=== PATIENT | male | born 1950 | race Caucasian/White ===

== ENCOUNTER 2018-11-10 10:36 | Emergency (ER) | payer MEDICARE, MEDICAID ==
[2018-11-10 10:47] VITALS: BP 136/86
[2018-11-10 11:40] LABS: Influenza A Molecular POSITIVE (Negative)
--- NOTE | 2018-11-10 11:59 | UC ---
FLU HPI - HPI Summary HPI Summary: 68 y/o male presents to the urgent care c/o SPIVEY, nasal congestion w/ clear nasal discharge, body aches and low grade fever for the past 3 days. Mild sore throat 5/10. He has been taking hydrocodone/Tylenol to alleviate pain since he has Hx of chronic back pain. Pt denies SOB, dizziness, chest pain, abdominal pain. N/V/D. - History of Current Complaint Chief Complaint: UCRespiratory Stated Complaint: HEADACHE Time Seen by Provider: 11/10/18 11:20 Hx Obtained From: Patient Onset/Duration: Gradual Onset, Lasting Days - 3 days, Still Present Severity Currently: Mild Severity Initially: Moderate Pain Intensity: 5 Pain Scale Used: 0-10 Numeric Associated Signs & Symptoms: Positive: Fever - low grade fever the first day of symptoms, Myalgia, Cough - dry, Sore Throat, Nasal Congestion - clear, Headache Related Hx: Possible Flu/Infectious Exposure - Risk Factors Influenza Risk Factors: Negative - Allergy/Home Medications Allergies/Adverse Reactions: Allergies Allergy/AdvReac Type Severity Reaction Status Date / Time Penicillins Allergy unk Verified 11/10/18 10:38 Home Medications: Home Medications Rivaroxaban TAB(*) [Xarelto 15 mg(*)] 15 mg PO DAILY 11/10/18 [History Confirmed 11/10/18] glipiZIDE [Glipizide ER] 2.5 mg PO QID 11/10/18 [History Confirmed 11/10/18] PMH/Surg Hx/FS Hx/Imm Hx Previously Healthy: Yes Endocrine History: Dyslipidemia Cardiovascular History: Hypertension GI/ History: Gastroesophageal Reflux - Surgical History Surgical History: None - Family History Known Family History: Positive: Hypertension - Social History Occupation: Retired Lives: With Family Alcohol Use: None Substance Use Type: None Smoking Status (MU): Heavy Every Day Tobacco Smoker Review of Systems All Other Systems Reviewed And Are Negative: Yes Constitutional: Positive: Fever - low grade fever, Chills, Fatigue, Other - body aches Skin: Positive: Negative Eyes: Positive: Negative ENT: Positive: Sore Throat - mild, Nasal Discharge - clear, Sinus Congestion Respiratory: Positive: Cough - dry Cardiovascular: Positive: Negative Gastrointestinal: Positive: Negative Genitourinary: Positive: Negative Motor: Positive: Negative Neurovascular: Positive: Negative Musculoskeletal: Positive: Myalgia Neurological: Positive: Headache Psychological: Positive: Negative Is Patient Immunocompromised?: No Physical Exam - Summary Physical Exam Summary: VITAL SIGNS: Reviewed. GENERAL: Patient is a well developed and nourished obese male who is sitting comfortable in the examining table. Patient is not in any acute respiratory distress. HEAD AND FACE: No signs of trauma. No ecchymosis, hematomas or skull depressions. No sinus tenderness. EYES: PERRLA, EOMI x 2, No injected conjunctiva, no nystagmus. No photophobia. EARS: Hearing grossly intact. Ear canals and tympanic membranes are within normal limits. Nose: edematous and erythematous nasal mucosa w/ clear nasal discharge. MOUTH: Positive no erythema, no tonsillar enlargement. Uvula in midline. NECK: Supple, trachea is midline, Positive anterior cervical lymphadenopathy, no JVD, no carotid bruit, no c-spine tenderness, neck with full ROM. No meningeal signs, no Kernig's or brudzinskis signs. CHEST: Symmetric, no tenderness at palpation LUNGS: Clear to auscultation bilaterally. No wheezing or crackles. CVS: Regular rate and rhythm, S1 and S2 present, no murmurs or gallops appreciated. ABDOMEN: Soft, non-tender. No signs of distention. No rebound no guarding, and no masses palpated. Bowel sounds are normal. EXTREMITIES: FROM in all major joints, no edema, no cyanosis or clubbing. NEURO: Alert and oriented x 3. No acute neurological deficits. Speech is normal and follows commands. SKIN: Dry and warm Triage Information Reviewed: Yes Vital Signs: Initial Vital Signs Temp 98 F 11/10/18 10:43 Pulse 89 11/10/18 10:43 Resp 20 11/10/18 10:43 BP 136/86 11/10/18 10:43 Pulse Ox 99 11/10/18 10:43 Flu Course/Dx - Course Course Of Treatment: 68 y/o male presents to the urgent care c/o SPIVEY, nasal congestion w/ clear nasal discharge, body aches and low grade fever for the past 3 days. Mild sore throat 5/10. He has been taking hydrocodone/Tylenol to alleviate pain since he has Hx of chronic back pain. Pt denies SOB, dizziness, chest pain, abdominal pain. N/V/D. Hx obtained. Pt w/ URI on examination. Rapid strep: negative. Rapid Influenza A&B: positive influenza A. Chest X-ray ordered: hyperinflated lungs conistent w/ COPD. Pt Rx Tamiflu and advised to contiinue w/ Tylenol PO to alleviates symptoms. Advised on hand washing and wear a mask to avoid spreading. Pt advised to rest, increase fluid intake, eat well and avoid strenuous exercise. If symptoms do not improve or worsen advised to return to the urgent care or f/u with her PCP for further evaluation and treatment. Pt understood and agreed - Differential Dx/Diagnosis Differential Diagnosis/HQI/PQRI: Bronchitis, Influenza, Pneumonia, Upper Respiratory Infection Provider Diagnosis: Influenza A Discharge - Sign-Out/Discharge Documenting (check all that apply): Patient Departure - d/C home All imaging exams completed and their final reports reviewed: Yes - Discharge Plan Condition: Stable Disposition: HOME Prescriptions: Albuterol HFA INHALER* [Ventolin HFA Inhaler*] 2 puff INH Q4H PRN #1 mdi PRN Reason: Wheezing Fluticas/Salmet 115/21 HFA(NF) [Advair HFA 115/21 (NF)] 1 puff INH DAILY WITH MEAL #1 mdi Oseltamivir CAP* [Tamiflu CAP*] 75 mg PO BID #10 cap Patient Education Materials: Influenza (ED) Referrals: Howard Allred MD [Primary Care Provider] - 3 Days Additional Instructions: 1- Please take the full course of the antiviral to avoid resistance. Encourage hand washing and wear a mask to avoid spreading. 2-Please continue taking Tylenol PO q6-8hrs prn as instructed after meals to alleviate fever, and sore throat. Increase fluid intake, eat well, rest and avoid strenuous exercise 3-If symptoms do not improve please f/u with your PCP in 3 days for further evaluation and treatment. 4- If symptoms worsen and you develop fever, SOB, dizziness, or chest pain please go immediately to the ER for further management - Billing Disposition and Condition Condition: STABLE Disposition: Home
== END 2018-11-10 12:46 | disposition home or self-care (01) ==
LOC: UCEAST 10:36
DX: J10.1 Influenza due to other identified influenza virus with other respiratory manifestations (principal); Z88.0 Allergy status to penicillin; E78.5 Hyperlipidemia, unspecified; I10 Essential (primary) hypertension; K21.9 Gastro-esophageal reflux disease without esophagitis; F17.200 Nicotine dependence, unspecified, uncomplicated
CPT/HCPCS: 71046; 87651; 99212; G0463

== ENCOUNTER 2019-06-14 11:20 | Inpatient (IN) | payer MEDICARE, MEDICAID ==
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
[2019-06-14] MEDS ORDERED: Furosemide IV* 10 MG/ML VIAL (40 MG) IV SLOW PU ONE (11:47)
[2019-06-14] MEDS ORDERED: Albuterol/Ipratropium NEB.SOL* Albuterol 2.5 MG/Ipratropium 0.5 MG 3 ML INH ONE (11:47)
[2019-06-14 12:34] LABS: Troponin I 0.01 ng/mL (<0.04)
[2019-06-14 12:41] LABS: ALT 8 U/L (7-52); AST 6 U/L (13-39); Albumin 3.8 g/dL (3.2-5.2); Albumin/Globulin Ratio 1.2 (1-3); Alkaline Phosphatase 78 U/L (34-104); Anion Gap 7 mmol/L (2-11); Blood Urea Nitrogen 16 mg/dL (6-24); CO2 Carbon Dioxide 27 mmol/L (22-32); Calcium 9.1 mg/dL (8.6-10.3); Chloride 104 mmol/L (101-111); EGFR African American 52.1 (>60); EGFR Non-African American 43.1 (>60); Globulin 3.3 g/dL (2-4); Glucose 139 mg/dL (70-100); Potassium 3.8 mmol/L (3.5-5.0); Sodium 138 mmol/L (135-145); Total Protein 7.1 g/dL (6.4-8.9)
[2019-06-14 13:25] LABS: ABS Basophils 0.1 10^3/ul (0-0.2); ABS Eosinophils 0.1 10^3/ul (0-0.6); ABS Lymphocytes 1.4 10^3/ul (1.0-4.8); ABS Monocytes 1.8 10^3/ul (0-0.8); ABS Neutrophils 8.3 10^3/ul (1.5-7.7); Eosinophil % 0.8 %; Hematocrit 29 % (42-52); Hemoglobin 8.7 g/dL (14.0-18.0); Mean Corpuscular HGB Conc 30 g/dL (31-36); Mean Corpuscular Hemoglobin 21 pg (27-31); Mean Corpuscular Volume 70 fL (80-94); Mean Platelet Volume 8.2 fL (7.4-10.4); Platelet Count 394 10^3/uL (150-450); Red Blood Count 4.12 10^6 /uL (4.18-5.48); Red Cell Distribution Width 18 % (10-15); White Blood Count 11.8 10^3/uL (3.5-10.8)
[2019-06-14 13:28] LABS: Microcytosis 2+; Polychromasia 1+
[2019-06-14] MEDS ORDERED: cefTRIAXone(*) 1 GM in NS 0.9% 50 ML* 50 ML IVPB ONE (14:22)
[2019-06-14] MEDS ORDERED: Azithromycin 500 mg/250 ml NS 500 MG/250 ML BAG IVPB ONE (14:22)
[2019-06-14 14:44] LABS: INR 2.33 (0.82-1.09)
[2019-06-14 15:13] LABS: C Reactive Protein 91.35 mg/L (<8.01)
[2019-06-14] MEDS ORDERED: Albuterol/Ipratropium NEB.SOL* Albuterol 2.5 MG/Ipratropium 0.5 MG 3 ML INH PRN (15:21)
[2019-06-14] MEDS ORDERED: Clotrimazole 1% CREAM* 45 GM TOPICAL PRN (15:25)
[2019-06-14] MEDS ORDERED: Warfarin TAB(*) 2.5 MG PO SCH (16:00)
[2019-06-14 16:08] LABS: Total Iron Binding Capacity 466 mcg/dL (250-450); Transferrin 333 mg/dL (203-362)
[2019-06-14 16:13] LABS: Hematocrit for Retic CNT 29 % (42-52); RBC Retic Count 4.12 10^6/uL (4.18-5.48)
[2019-06-14 16:17] LABS: Corrected Retic Count 1.3 % (0.5-1.5); Immature Retic Fraction 0.54
[2019-06-14 16:26] LABS: % Iron Saturation 4 % (15-55); Iron < 20 ug/dL (50-212)
[2019-06-14 16:35] LABS: Ferritin 14.2 ng/mL (24-336)
[2019-06-14] MEDS ORDERED: Dextrose 50% VIAL 50 ml IV PUSH PRN (17:15)
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
[2019-06-14 17:32] LABS: Influenza A Molecular NEGATIVE (Negative); Influenza B Molecular NEGATIVE (Negative)
[2019-06-14 18:53] LABS: Troponin I 0.03 ng/mL (<0.04)
[2019-06-14] MEDS: Furosemide IV* 10 MG/ML VIAL (40 MG) IV SCH (19:36)
[2019-06-14] MEDS: HYDROcodone/ACETAMIN 5-325 MG* 1 TAB PO PRN (19:36)
[2019-06-14] MEDS: Insulin LISPRO* 1 UNITS UNIT SUBCUT SCH (21:13)
[2019-06-14] MEDS: busPIRone TAB* 15 MG PO SCH (21:14)
[2019-06-14] MEDS: guaiFENesin ER TAB 600 MG PO SCH (21:14)
[2019-06-14] MEDS: cloNIDine TAB* 0.1 MG PO SCH (21:15)
[2019-06-14] MEDS: Senna TAB 8.6 mg* TAB PO SCH (21:15)
[2019-06-14] MEDS: Docusate CAP* 100 MG PO SCH (21:15)
[2019-06-14] MEDS ORDERED: Ondansetron INJ* 2 MG/ML VIAL IV PRN (22:20)
[2019-06-14] MEDS: Albuterol HFA INHALER* 8 gm MDI INH PRN (22:30)
[2019-06-14] MEDS: Polymyx/Trimethoprim OPTH* 10 ML BTL BOTH EYES SCH ×2 (22:57→23:47)
[2019-06-14] MEDS: Acetaminophen TAB* 325 MG PO PRN (23:48)
[2019-06-14] MEDS: tiZANidine TAB* 2 MG PO PRN (23:48)
[2019-06-15] MEDS: Polymyx/Trimethoprim OPTH* 10 ML BTL BOTH EYES SCH ×7 (04:28→21:06)
[2019-06-15] MEDS: HYDROcodone/ACETAMIN 5-325 MG* 1 TAB PO PRN ×3 (04:28→21:10)
[2019-06-15 06:32] LABS: ABS Basophils 0.1 10^3/ul (0-0.2); ABS Eosinophils 0.1 10^3/ul (0-0.6); ABS Lymphocytes 1.5 10^3/ul (1.0-4.8); ABS Monocytes 1.3 10^3/ul (0-0.8); ABS Neutrophils 7.1 10^3/ul (1.5-7.7); Eosinophil % 1.4 %; Hematocrit 28 % (42-52); Hemoglobin 8.6 g/dL (14.0-18.0); Lymphocyte % 14.5 %; Mean Corpuscular HGB Conc 31 g/dL (31-36); Mean Corpuscular Hemoglobin 22 pg (27-31); Mean Corpuscular Volume 69 fL (80-94); Mean Platelet Volume 8.2 fL (7.4-10.4); Platelet Count 340 10^3/uL (150-450); Red Cell Distribution Width 18 % (10-15); White Blood Count 10.1 10^3/uL (3.5-10.8)
[2019-06-15 06:37] LABS: INR 2.18 (0.82-1.09)
[2019-06-15 06:43] LABS: BUN/Creatinine Ratio 10.7 (8-20); Calcium 8.8 mg/dL (8.6-10.3); EGFR African American 46.4 (>60); EGFR Non-African American 38.3 (>60); Potassium 3.9 mmol/L (3.5-5.0)
[2019-06-15] MEDS: Fluticasone NASAL SPRAY 50MCG* 16 gm SPRAY BTL BOTH NARES SCH (08:52)
[2019-06-15] MEDS: Albuterol HFA INHALER* 8 gm MDI INH PRN (08:53)
[2019-06-15] MEDS: Furosemide IV* 10 MG/ML VIAL (40 MG) IV SCH ×2 (08:53→16:31)
[2019-06-15] MEDS: Insulin LISPRO* 1 UNITS UNIT SUBCUT SCH ×4 (08:55→21:07)
[2019-06-15] MEDS: busPIRone TAB* 15 MG PO SCH ×3 (08:55→21:07)
[2019-06-15] MEDS: cloNIDine TAB* 0.1 MG PO SCH ×2 (08:55→21:07)
[2019-06-15] MEDS: Docusate CAP* 100 MG PO SCH ×2 (08:55→21:06)
[2019-06-15] MEDS: amLODIPine TAB* 5 MG PO SCH (08:55)
[2019-06-15] MEDS: Metoprolol Succinate XL TAB* 100 MG PO SCH (08:55)
[2019-06-15] MEDS: Aspirin EC TAB* 81 MG TAB.EC PO SCH (08:55)
[2019-06-15] MEDS: Atorvastatin* 10 MG TAB PO SCH (08:56)
[2019-06-15] MEDS: Azithromycin TAB* 250 MG PO SCH (08:56)
[2019-06-15] MEDS: guaiFENesin ER TAB 600 MG PO SCH ×2 (08:56→21:08)
[2019-06-15] MEDS: Senna TAB 8.6 mg* TAB PO SCH ×2 (08:56→21:06)
[2019-06-15] MEDS: Pantoprazole TAB * 40 MG TAB PO SCH (08:56)
[2019-06-15] MEDS: Cetirizine* 10 MG TAB PO SCH (08:56)
[2019-06-15] MEDS ORDERED: Perflutren Lipid Microsphere* 3 ML VIAL ONE (11:25)
[2019-06-15] MEDS ORDERED: Polyethylene Glycol 3350* 17 GM PACKET PO ONE (11:58)
--- NOTE | 2019-06-15 13:32 | ECHO ---
*[facility]* [place] [address] Fax #: [phone] Transthoracic Echocardiogram Patient: Miguelito Mathias : 1950 Study Date: 06/15/2019 Age: 69 Gender: M HR: 82 bpm Height: 69 in /175.3 cm BSA: 2.49 m^2 Weight: 309.4 lb /140.6 kg BMI: 45.8 kg/m^2 *[employer]: * Cookie Garnica [facility] *Referring Physician: * Kera Valladares *Reading Physician: Matt Viera MD Indications: Congestive Heart Failure. History: Head trauma in past. Risk factors: Current tobacco use. Hypertension. Dyslipidemia. Conclusions Summary: - Left ventricle: Systolic function is normal. The estimated ejection fraction is 60-65%. Wall motion is normal; there are no regional wall motion abnormalities. - Left atrium: The atrium is severely dilated. - Right atrium: The atrium is moderately dilated. - Aortic valve: A bicuspid morphology cannot be excluded. The leaflets are mildly thickened. There is fusion of the right-left coronary commissure. The findings are consistent with mild stenosis. There is significant beat to beat variability due to varying cycle lengths in atrial fibrillation. Regurgitation is difficult to evaluate due to jet eccentricity. - Tricuspid valve: There is trace to mild regurgitation. - Aortic root: The aortic root is mildly dilated. - C/t 08/14/2007, is new. Ejection fraction was 50-55% then. Study data: Transthoracic echocardiogram. Procedure: Transthoracic echocardiography was performed. Image quality was suboptimal. The study was technically limited due to restricted patient mobility and body habitus. Intravenous Definity , 3 mlswas administered. Complete 2D, spectral Doppler, and color flow Doppler. Location: Bedside. Patient status: Inpatient. Patient room number: 403. Rhythm: Atrial fibrillation. Findings Left ventricle: The cavity size is normal. Wall thickness is moderately increased. Systolic function is normal. The estimated ejection fraction is 60-65%. Wall motion is normal; there are no regional wall motion abnormalities. Left ventricular diastolic function parameters are indeterminate. Right ventricle: The cavity size is mildly dilated. Wall thickness is mildly increased. Systolic function is normal. Left atrium: The atrium is severely dilated. Right atrium: The atrium is moderately dilated. Mitral valve: The leaflets are mildly thickened. There is no evidence of stenosis. There is trace to mild regurgitation. Aortic valve: A bicuspid morphology cannot be excluded. The leaflets are mildly thickened. There is fusion of the right-left coronary commissure. The findings are consistent with mild stenosis. There is significant beat to beat variability due to varying cycle lengths in atrial fibrillation. Regurgitation is difficult to evaluate due to jet eccentricity. Probably mild-moderate . Tricuspid valve: The leaflets are normal thickness. There is no evidence of stenosis. There is trace to mild regurgitation. Pulmonic valve: The leaflets are normal thickness. There is no evidence of stenosis. There is trace regurgitation. Aorta: Aortic root: The aortic root is mildly dilated. Ascending aorta: The ascending aorta is mildly dilated. Aortic arch: The aortic arch is poorly visualized. Pericardium: A prominent pericardial fat pad is present. There is no significant pericardial effusion. Pulmonary arteries: The main pulmonary artery is normal-sized. Systolic pressure can not be accurately estimated. Systemic veins: Inferior vena cava: The vessel is dilated. There is (< 50%) respiratory change in the IVC dimension. Measurements Left ventricle Value Ref Right atrium Value Ref PATSY, LAX 5.0 cm 4.2 - 5.8 SI dim, ES (H) 6.8 cm 3.4 - 5.3 ESD, LAX 4.0 cm 2.5 - 4.0 ML dim, ES, A4C (H) 5.4 cm 2.6 - 4.4 FS, LAX (L) 19 % 25 - 43 SI dim, ES, A4C (H) 6.8 cm 3.4 - 5.3 PW, ED, LAX (H) 1.4 cm 0.6 - 1.0 SI dim/bsa, ES, A4C 2.7 cm/m^2 1.8 - 3.0 FS (L) 19 % 25 - 43 Estimated RAP 8 mm Hg --------- PW, ED (H) 1.4 cm 0.6 - 1.0 PW/ID, ED 0.28 Aortic valve Value Ref E', lat godfrey, TDI 11.6 cm/sec >=10.0 Godfrey diam, ED 2.2 cm - -------- E/e', lat godfrey, 8 Peak v, S 1.91 m/sec ---- ----- TDI VTI, S 27.6 cm --------- E', med godfrey, TDI 7.5 cm/sec >=7.0 Mean grad, S 8.0 mm Hg - -------- E/e', med godfrey, 13 Peak grad, S 15.0 mm Hg ---- ----- TDI LVOT/AV, VTI ratio 0.65 --------- E', avg, TDI 9.6 cm/sec LEANNE, VTI 2.05 cm^2 ---- ----- E/e', avg, TDI 10 <=14 LEANNE, Vmax 1.71 cm^2 - -------- LVOT Value Ref Mitral valve Value Ref Diam, S 2.00 cm Peak E 0.94 m/sec --------- Area 3.1 cm^2 Peak grad, D 3.6 mm Hg --------- Peak lupe, S 1.04 m/sec VTI, S 18.0 cm Pulmonic valve Value Ref Mean grad, S 2 mm Hg Peak v, S 1.02 m/sec --------- SV 56 ml Peak grad, S 4.0 mm Hg --------- SV/bsa 22 ml/m^2 Aortic root Value Ref Ventricular septum Value Ref Root diam 4.1 cm <4.5 IVS, ED (H) 1.4 cm 0.6 - 1.0 Ascending aorta Value Ref Right ventricle Value Ref AAo AP diam, S 4.1 cm --------- AW thickness, ED (H) 0.7 cm 0.1 - 0.5 PATSY, LAX 3.4 cm Inferior vena cava Value Ref PATSY minor ax, (H) 4.1 cm 1.9 - 3.5 Diam 2.2 cm --------- A4C mid Left atrium Value Ref AP dim, ES (H) 4.70 cm 3.00 - 4.00 ML dim, A4C 6.3 cm SI dim, A4C 8.9 cm Vol/bsa, ES, 1-p (H) 72 ml/m^2 12 - 37 A4C Vol/bsa, ES, A/L (H) 79 ml/m^2 16 - 34 Legend: (L) and (H) michelle values outside specified reference range. Prepared and electronically signed by Matt Hawkins MD 06/15/2019 13:32
[2019-06-15] MEDS ORDERED: Warfarin TAB(*) 2.5 MG PO SCH (15:25)
--- NOTE | 2019-06-15 17:02 | PN ---
Subjective Date of Service: 06/15/19 Interval History: Patient seen sitting up in chair. Stated he was "not feeling so good" though admittedly better than yesterday. Mildly SOB at rest. Having difficulty coughing up his secretions, feeling like they are getting stuck at the base of his throat. Reported feeling dizzy with bending down. Denies headaches, chest pain, palpitations, abdominal pain, nausea, vomiting, issues moving his bowel or bladder. Spoke with him about needing a stool sample to check for blood to rule out GI bleed. He made it clear that he did not want to undergo a colonoscopy "ever again" because he had rectal pain after previous one. Family History: Unchanged from Admission Social History: Unchanged from Admission Past Medical History: Unchanged from Admission Objective Active Medications: Acetaminophen (Tylenol Tab*) 650 mg PO Q4H PRN PRN Reason: PAIN-MILD/TEMP >/= 100.4 Last Admin: 06/14/19 23:48 Dose: 650 mg Hydrocodone Bitart/Acetaminophen (Pledger 5-325 Tab*) 1 tab PO Q6HR PRN PRN Reason: PAIN - MODERATE Last Admin: 06/15/19 14:06 Dose: 1 tab Albuterol (Ventolin Hfa Inhaler*) 2 puff INH Q2H PRN PRN Reason: SOB/WHEEZING Last Admin: 06/15/19 08:53 Dose: 2 puff Albuterol/Ipratropium (Duoneb (Albuterol 2.5 Mg/Ipratropium 0.5 Mg)) 1 neb INH Q4H PRN PRN Reason: SOB/WHEEZING Amlodipine Besylate (Norvasc Tab*) 10 mg PO DAILY [facility] Last Admin: 06/15/19 08:55 Dose: 10 mg Aspirin (Aspirin Ec Tab*) 81 mg PO DAILY [facility] Last Admin: 06/15/19 08:55 Dose: 81 mg Atorvastatin Calcium (Lipitor*) 5 mg PO DAILY [facility] Last Admin: 06/15/19 08:56 Dose: 5 mg Azithromycin (Zithromax Tab*) 250 mg PO DAILY [facility] Last Admin: 06/15/19 08:56 Dose: 250 mg Buspirone HCl (Buspar Tab *) 15 mg PO TID [facility] Last Admin: 06/15/19 12:36 Dose: 15 mg Cetirizine HCl (Zyrtec*) 10 mg PO DAILY [facility] Last Admin: 06/15/19 08:56 Dose: 10 mg Clonidine HCl (Catapres Tab*) 0.2 mg PO BID [facility] Last Admin: 06/15/19 08:55 Dose: 0.2 mg Clotrimazole (Clotrimazole 1%*) 1 applic TOPICAL DAILY PRN PRN Reason: RASH Dextrose (Dextrose 50% Vial 50 Ml*) 25 ml IV PUSH .FOR FS < 60 - SS PRN PRN Reason: FS < 60 Docusate Sodium (Colace Cap*) 100 mg PO BID [facility] Last Admin: 06/15/19 08:55 Dose: 100 mg Fluticasone Propionate (Flonase Nasal Strawberry 50mcg*) 2 spray BOTH NARES DAILY [facility] Last Admin: 06/15/19 08:52 Dose: 2 spray Furosemide (Lasix Iv*) 40 mg IV 0800,1700 [facility] Last Admin: 06/15/19 16:31 Dose: 40 mg Guaifenesin (Mucinex*) 600 mg PO Q12HR [facility] Last Admin: 06/15/19 08:56 Dose: 600 mg Insulin Human Lispro (Humalog*) 0 units SUBCUT ACHS [facility]; Protocol Last Admin: 06/15/19 16:30 Dose: 4 unit Metoprolol Succinate (Toprol Xl Tab*) 200 mg PO DAILY [facility] Last Admin: 06/15/19 08:55 Dose: 200 mg Pantoprazole Sodium (Protonix Tab*) 40 mg PO DAILY [facility] Last Admin: 06/15/19 08:56 Dose: 40 mg Polymyxin/Trimethoprim Sulfate (Polytrim Ophth*) 1 drop BOTH EYES Q3H [facility] Last Admin: 06/15/19 16:29 Dose: 1 drop Senna (Senokot 8.6 Mg Tab*) 1 tab PO BID [facility] Last Admin: 06/15/19 08:56 Dose: 1 tab Tizanidine HCl (Zanaflex Tab*) 2 mg PO TID PRN PRN Reason: SPASMS - MUSCLE Last Admin: 06/14/19 23:48 Dose: 2 mg Vital Signs - 8 hr 06/15/19 06/15/19 06/15/19 11 14:06 16:00 Temperature 97.9 F Pulse Rate 98 Respiratory 18 18 16 Rate Blood Pressure 142/88 (mmHg) O2 Sat by Pulse 95 Oximetry Oxygen Devices in Use Now: None Appearance: This is a poorly groomed obese gentleman seen sitting up in chair. Chronically ill in appearance. Eyes: No Scleral Icterus, PERRLA Ears/Nose/Mouth/Throat: NL Teeth, Lips, Gums, Clear Oropharnyx, Mucous Membranes Moist Neck: NL Appearance and Movements; NL JVP, Trachea Midline Respiratory: Symmetrical Chest Expansion and Respiratory Effort, - - Expiratory rhonchi to left middle and lower lung guillen. Cardiovascular: NL Sounds; No Murmurs; No JVD, RRR, No Edema Abdominal: NL Sounds; No Tenderness; No Distention, No Hepatosplenomegaly Extremities: No Clubbing, Cyanosis, - - 3+ edema to bilateral lower extremities. Skin: - - Ulceration to left marques covered with telfa and roni wrap. Wound bed pink, granulating, moist. Wound edges benign. Discoloration to bilateral lower extremities. Neurological: Alert and Oriented x 3, NL Sensation Lines/Tubes/Other Access: Clean, Dry and Intact Peripheral IV Result Diagrams: 06/15/19 06:10 06/15/19 06:10 Microbiology and Other Data: Microbiology 06/15/19 14:50 Stool Occult Blood (OLVIN) - Final Stool 06/14/19 12:00 Aerobic Blood Culture - Preliminary Blood Venous No Growth Day 1 Anaerobic Blood Culture - Preliminary No Growth Day 1 06/14/19 11:46 Aerobic Blood Culture - Preliminary Blood Venous No Growth Day 1 Anaerobic Blood Culture - Preliminary No Growth Day 1 Assess/Plan/Problems-Billing Assessment: This is a 69 year old male with a past medical history of TBI, CKD, HTN, DMII, and Afib who was admitted on 06/14/19 with bronchitis and CHF exacerbation. - Patient Problems (1) CHF exacerbation Current Visit: Yes Status: Acute Code(s): I50.9 - HEART FAILURE, UNSPECIFIED SNOMED Code(s): 635050275 Comment: -Patient did not explicitly have a stated history of CHF though was on a diuretic at home. BNP upon admission was 585. Started on IV lasix. Daily weights ordered. -TTE showed EF of 55-60%, new mild aoritc stenosis. Both atria dilated. (2) Bronchitis Current Visit: Yes Status: Acute Code(s): J40 - BRONCHITIS, NOT SPECIFIED ACUTE OR CHRONIC SNOMED Code(s): 97763745 Comment: -Continuing to cough with difficulty bringing up sputum. -Continue guaifenesin, azithromycin (3) Anemia Current Visit: Yes Status: Acute Code(s): D64.9 - ANEMIA, UNSPECIFIED SNOMED Code(s): 471025179 Comment: -Stool occult negative. No other overt signs of bleeding. This is felt to be secondary to chronic bed bug infestation. Started patient on ferrous sulfate daily. (4) Bedbug bite Current Visit: Yes Status: Acute Code(s): W57.XXXA - BIT/STUNG BY NONVENOM INSECT & OTH NONVENOM ARTHROPODS, INIT SNOMED Code(s): 188481337 Comment: -Patient stated that his apartment has been fumagated multiple times but infestation keeps returning because other apartments in his building have infestations. -Continue clotromazole for pruritis related to bedbugs. (5) Diabetes type 2, controlled Current Visit: Yes Status: Acute Code(s): E11.9 - TYPE 2 DIABETES MELLITUS WITHOUT COMPLICATIONS SNOMED Code(s): 95667948 Comment: -BG 150-230's. Continue glipizide and sliding scale insulin with BG checks ACHS. (6) Hyperlipidemia Current Visit: Yes Status: Acute Code(s): E78.5 - HYPERLIPIDEMIA, UNSPECIFIED SNOMED Code(s): 66783870 Comment: -Continue atorvastatin. (7) GERD (gastroesophageal reflux disease) Current Visit: Yes Status: Acute Code(s): K21.9 - GASTRO-ESOPHAGEAL REFLUX DISEASE WITHOUT ESOPHAGITIS SNOMED Code(s): 743281941 Comment: -Continue protonix. No reports of indigestion. (8) Atrial fibrillation Current Visit: Yes Status: Acute Code(s): I48.91 - UNSPECIFIED ATRIAL FIBRILLATION SNOMED Code(s): 51393463 Comment: -EKG upon admission showed AFIB. This is a chronic issue for him. Continue metoprolol. -Warfarin was held initially with the concern that patient had an active bleed. Anemia likely due to bed bug infestation. Will restart warfarin tonight. (9) Hypertension Current Visit: Yes Status: Acute Code(s): I10 - ESSENTIAL (PRIMARY) HYPERTENSION SNOMED Code(s): 63444567 Comment: -SBP's 120-140's. -Continue clonidine, amlodipine. Torsemide on hold for now. (10) Conjunctivitis Current Visit: Yes Status: Acute Code(s): H10.9 - UNSPECIFIED CONJUNCTIVITIS SNOMED Code(s): 5410784 Comment: -Continue polymixin B drops x 5 days (11) DVT prophylaxis Current Visit: Yes Status: Acute Code(s): Z29.9 - ENCOUNTER FOR PROPHYLACTIC MEASURES, UNSPECIFIED SNOMED Code(s): 478043346 Comment: -On lovenox to bridge coumadin. (12) Full code status Current Visit: Yes Status: Acute Code(s): Z78.9 - OTHER SPECIFIED HEALTH STATUS SNOMED Code(s): 188166375 Attending: Kera Valladares
[2019-06-15] MEDS ORDERED: Enoxaparin(*) 40 MG/0.4 ML SYR SUBCUT SCH (18:00)
[2019-06-16] MEDS: Polymyx/Trimethoprim OPTH* 10 ML BTL BOTH EYES SCH ×8 (00:05→21:04)
[2019-06-16] MEDS: HYDROcodone/ACETAMIN 5-325 MG* 1 TAB PO PRN ×3 (04:45→23:26)
[2019-06-16 05:19] LABS: BUN/Creatinine Ratio 12.2 (8-20); Calcium 8.6 mg/dL (8.6-10.3); EGFR African American 45.2 (>60); EGFR Non-African American 37.4 (>60); Potassium 3.8 mmol/L (3.5-5.0)
[2019-06-16] MEDS: Furosemide IV* 10 MG/ML VIAL (40 MG) IV SCH ×2 (08:15→16:55)
[2019-06-16] MEDS: Metoprolol Succinate XL TAB* 100 MG PO SCH (08:15)
[2019-06-16] MEDS: Insulin LISPRO* 1 UNITS UNIT SUBCUT SCH ×4 (08:15→21:03)
[2019-06-16] MEDS: cloNIDine TAB* 0.1 MG PO SCH ×2 (08:15→21:02)
[2019-06-16] MEDS: Azithromycin TAB* 250 MG PO SCH (08:15)
[2019-06-16] MEDS: Ferrous Sulfate TAB* 325 MG PO SCH (08:15)
[2019-06-16] MEDS: Senna TAB 8.6 mg* TAB PO SCH ×2 (08:15→21:02)
[2019-06-16] MEDS: Docusate CAP* 100 MG PO SCH ×2 (08:16→21:02)
[2019-06-16] MEDS: Cetirizine* 10 MG TAB PO SCH (08:16)
[2019-06-16] MEDS: Pantoprazole TAB * 40 MG TAB PO SCH (08:16)
[2019-06-16] MEDS: Aspirin EC TAB* 81 MG TAB.EC PO SCH (08:16)
[2019-06-16] MEDS: glipiZIDE TAB* 5 MG PO SCH (08:16)
[2019-06-16] MEDS: Atorvastatin* 10 MG TAB PO SCH (08:16)
[2019-06-16] MEDS: amLODIPine TAB* 5 MG PO SCH (08:16)
[2019-06-16] MEDS: guaiFENesin ER TAB 600 MG PO SCH ×2 (08:16→21:02)
[2019-06-16] MEDS: Fluticasone NASAL SPRAY 50MCG* 16 gm SPRAY BTL BOTH NARES SCH (08:18)
[2019-06-16] MEDS: busPIRone TAB* 15 MG PO SCH ×3 (08:18→21:02)
--- NOTE | 2019-06-16 16:32 | PN ---
Subjective Date of Service: 06/16/19 Interval History: Reports some improvement in breathing. Family History: Unchanged from Admission Social History: Unchanged from Admission Past Medical History: Unchanged from Admission Objective Active Medications: Acetaminophen (Tylenol Tab*) 650 mg PO Q4H PRN PRN Reason: PAIN-MILD/TEMP >/= 100.4 Last Admin: 06/14/19 23:48 Dose: 650 mg Hydrocodone Bitart/Acetaminophen (Minford 5-325 Tab*) 1 tab PO Q6HR PRN PRN Reason: PAIN - MODERATE Last Admin: 06/16/19 04:45 Dose: 1 tab Albuterol (Ventolin Hfa Inhaler*) 2 puff INH Q2H PRN PRN Reason: SOB/WHEEZING Last Admin: 06/15/19 08:53 Dose: 2 puff Albuterol/Ipratropium (Duoneb (Albuterol 2.5 Mg/Ipratropium 0.5 Mg)) 1 neb INH Q4H PRN PRN Reason: SOB/WHEEZING Amlodipine Besylate (Norvasc Tab*) 10 mg PO DAILY [facility] Last Admin: 06/16/19 08:16 Dose: 10 mg Aspirin (Aspirin Ec Tab*) 81 mg PO DAILY [facility] Last Admin: 06/16/19 08:16 Dose: 81 mg Atorvastatin Calcium (Lipitor*) 5 mg PO DAILY [facility] Last Admin: 06/16/19 08:16 Dose: 5 mg Azithromycin (Zithromax Tab*) 250 mg PO DAILY [facility] Last Admin: 06/16/19 08:15 Dose: 250 mg Buspirone HCl (Buspar Tab *) 15 mg PO TID [facility] Last Admin: 06/16/19 13:29 Dose: 15 mg Cetirizine HCl (Zyrtec*) 10 mg PO DAILY [facility] Last Admin: 06/16/19 08:16 Dose: 10 mg Clonidine HCl (Catapres Tab*) 0.2 mg PO BID [facility] Last Admin: 06/16/19 08:15 Dose: 0.2 mg Clotrimazole (Clotrimazole 1%*) 1 applic TOPICAL DAILY PRN PRN Reason: RASH Dextrose (Dextrose 50% Vial 50 Ml*) 25 ml IV PUSH .FOR FS < 60 - SS PRN PRN Reason: FS < 60 Docusate Sodium (Colace Cap*) 100 mg PO BID [facility] Last Admin: 06/16/19 08:16 Dose: 100 mg Ferrous Sulfate (Ferrous Sulfate Tab*) 325 mg PO DAILY [facility] Last Admin: 06/16/19 08:15 Dose: 325 mg Fluticasone Propionate (Flonase Nasal Lee 50mcg*) 2 spray BOTH NARES DAILY [facility] Last Admin: 06/16/19 08:18 Dose: 2 spray Furosemide (Lasix Iv*) 40 mg IV 0800,1700 [facility] Last Admin: 06/16/19 08:15 Dose: 40 mg Glipizide (Glucotrol Tab*) 2.5 mg PO DAILY [facility] Last Admin: 06/16/19 08:16 Dose: 2.5 mg Guaifenesin (Mucinex*) 600 mg PO Q12HR [facility] Last Admin: 06/16/19 08:16 Dose: 600 mg Insulin Human Lispro (Humalog*) 0 units SUBCUT ACHS [facility]; Protocol Last Admin: 06/16/19 13:29 Dose: Not Given Metoprolol Succinate (Toprol Xl Tab*) 200 mg PO DAILY [facility] Last Admin: 06/16/19 08:15 Dose: 200 mg Pantoprazole Sodium (Protonix Tab*) 40 mg PO DAILY [facility] Last Admin: 06/16/19 08:16 Dose: 40 mg Polymyxin/Trimethoprim Sulfate (Polytrim Ophth*) 1 drop BOTH EYES Q3H [facility] Last Admin: 06/16/19 13:29 Dose: 1 drop Senna (Senokot 8.6 Mg Tab*) 1 tab PO BID [facility] Last Admin: 06/16/19 08:15 Dose: 1 tab Tizanidine HCl (Zanaflex Tab*) 2 mg PO TID PRN PRN Reason: SPASMS - MUSCLE Last Admin: 06/14/19 23:48 Dose: 2 mg Vital Signs - 8 hr 06/16/19 06/16/19 10:58 15:15 Temperature 97.5 F 98.1 F Pulse Rate 93 92 Respiratory 16 21 Rate Blood Pressure 134/86 134/76 (mmHg) O2 Sat by Pulse 96 99 Oximetry Oxygen Devices in Use Now: None Eyes: No Scleral Icterus Neck: NL Appearance and Movements; NL JVP Respiratory: Symmetrical Chest Expansion and Respiratory Effort Cardiovascular: NL Sounds; No Murmurs; No JVD Abdominal: NL Sounds; No Tenderness; No Distention Extremities: - - bilateral edema Neurological: Alert and Oriented x 3 Result Diagrams: 06/15/19 06:10 06/16/19 04:50 Microbiology and Other Data: Microbiology 06/15/19 14:50 Stool Occult Blood (OLVIN) - Final Stool 06/14/19 12:00 Aerobic Blood Culture - Preliminary Blood Venous No Growth Day 1 Anaerobic Blood Culture - Preliminary No Growth Day 1 06/14/19 11:46 Aerobic Blood Culture - Preliminary Blood Venous No Growth Day 1 Anaerobic Blood Culture - Preliminary No Growth Day 1 Assess/Plan/Problems-Billing Assessment: This is a 69 year old male with a past medical history of TBI, CKD, HTN, DMII, and Afib who was admitted on 06/14/19 with bronchitis and CHF exacerbation. - Patient Problems (1) CHF exacerbation Current Visit: Yes Status: Acute Code(s): I50.9 - HEART FAILURE, UNSPECIFIED SNOMED Code(s): 730461620 Comment: -Patient did not explicitly have a stated history of CHF though was on a diuretic at home. BNP upon admission was 585. Started on IV lasix. Daily weights ordered. -TTE showed EF of 55-60%, new mild aoritc stenosis. Both atria dilated. (2) Bronchitis Current Visit: Yes Status: Acute Code(s): J40 - BRONCHITIS, NOT SPECIFIED ACUTE OR CHRONIC SNOMED Code(s): 08731612 Comment: -Continuing to cough with difficulty bringing up sputum. -Continue guaifenesin, azithromycin (3) Atrial fibrillation Current Visit: Yes Status: Acute Code(s): I48.91 - UNSPECIFIED ATRIAL FIBRILLATION SNOMED Code(s): 53105135 Comment: -EKG upon admission showed AFIB. This is a chronic issue for him. Continue metoprolol. -Warfarin was held initially with the concern that patient had an active bleed. Anemia likely due to bed bug infestation. Started Coumadin (4) Anemia Current Visit: Yes Status: Acute Code(s): D64.9 - ANEMIA, UNSPECIFIED SNOMED Code(s): 839386784 Comment: -Stool occult negative. No other overt signs of bleeding. This is felt to be secondary to chronic bed bug infestation. Started patient on ferrous sulfate daily. (5) Bedbug bite Current Visit: Yes Status: Acute Code(s): W57.XXXA - BIT/STUNG BY NONVENOM INSECT & OTH NONVENOM ARTHROPODS, INIT SNOMED Code(s): 573298098 Comment: -Patient stated that his apartment has been fumagated multiple times but infestation keeps returning because other apartments in his building have infestations. -Continue clotromazole for pruritis related to bedbugs. (6) Conjunctivitis Current Visit: Yes Status: Acute Code(s): H10.9 - UNSPECIFIED CONJUNCTIVITIS SNOMED Code(s): 8574166 Comment: -Continue polymixin B drops x 5 days (7) Diabetes type 2, controlled Current Visit: Yes Status: Acute Code(s): E11.9 - TYPE 2 DIABETES MELLITUS WITHOUT COMPLICATIONS SNOMED Code(s): 34707275 Comment: -BG 150-230's. Continue glipizide and sliding scale insulin with BG checks ACHS. (8) GERD (gastroesophageal reflux disease) Current Visit: Yes Status: Acute Code(s): K21.9 - GASTRO-ESOPHAGEAL REFLUX DISEASE WITHOUT ESOPHAGITIS SNOMED Code(s): 967828925 Comment: -Continue protonix. No reports of indigestion. (9) Hyperlipidemia Current Visit: Yes Status: Acute Code(s): E78.5 - HYPERLIPIDEMIA, UNSPECIFIED SNOMED Code(s): 54733458 Comment: -Continue atorvastatin. (10) Hypertension Current Visit: Yes Status: Acute Code(s): I10 - ESSENTIAL (PRIMARY) HYPERTENSION SNOMED Code(s): 29398046 Comment: -SBP's 120-140's. -Continue clonidine, amlodipine. Torsemide on hold for now. (11) DVT prophylaxis Current Visit: Yes Status: Acute Code(s): Z29.9 - ENCOUNTER FOR PROPHYLACTIC MEASURES, UNSPECIFIED SNOMED Code(s): 888664209 Comment: -On lovenox to bridge coumadin. (12) Full code status Current Visit: Yes Status: Acute Code(s): Z78.9 - OTHER SPECIFIED HEALTH STATUS SNOMED Code(s): 919632174
[2019-06-16] MEDS ORDERED: WARFARIN - No Order Today* 1 NOTE MISC FOLLOW UP ONE (17:00)
[2019-06-17] MEDS: Polymyx/Trimethoprim OPTH* 10 ML BTL BOTH EYES SCH ×8 (01:21→22:07)
[2019-06-17 05:03] LABS: ABS Eosinophils 0.3 10^3/ul (0-0.6); ABS Lymphocytes 1.8 10^3/ul (1.0-4.8); ABS Monocytes 1.2 10^3/ul (0-0.8); ABS Neutrophils 5.2 10^3/ul (1.5-7.7); Eosinophil % 4.1 %; Hematocrit 29 % (42-52); Hemoglobin 8.7 g/dL (14.0-18.0); INR 1.38 (0.82-1.09); Lymphocyte % 21.2 %; Mean Corpuscular HGB Conc 30 g/dL (31-36); Mean Corpuscular Hemoglobin 21 pg (27-31); Mean Corpuscular Volume 69 fL (80-94); Mean Platelet Volume 8.2 fL (7.4-10.4); Nucleated Red Blood Cells % 0.1; Platelet Count 363 10^3/uL (150-450); Red Blood Count 4.16 10^6 /uL (4.18-5.48); Red Cell Distribution Width 17 % (10-15); White Blood Count 8.5 10^3/uL (3.5-10.8)
[2019-06-17 05:15] LABS: BUN/Creatinine Ratio 14.6 (8-20); Calcium 8.9 mg/dL (8.6-10.3); EGFR African American 52.9 (>60); EGFR Non-African American 43.7 (>60)
[2019-06-17] MEDS: Fluticasone NASAL SPRAY 50MCG* 16 gm SPRAY BTL BOTH NARES SCH (09:05)
[2019-06-17] MEDS: Furosemide IV* 10 MG/ML VIAL (40 MG) IV SCH ×2 (09:06→17:47)
[2019-06-17] MEDS: Metoprolol Succinate XL TAB* 100 MG PO SCH (09:06)
[2019-06-17] MEDS: busPIRone TAB* 15 MG PO SCH ×3 (09:06→22:06)
[2019-06-17] MEDS: Aspirin EC TAB* 81 MG TAB.EC PO SCH (09:06)
[2019-06-17] MEDS: amLODIPine TAB* 5 MG PO SCH (09:06)
[2019-06-17] MEDS: guaiFENesin ER TAB 600 MG PO SCH ×2 (09:07→21:30)
[2019-06-17] MEDS: Atorvastatin* 10 MG TAB PO SCH (09:07)
[2019-06-17] MEDS: Docusate CAP* 100 MG PO SCH ×2 (09:07→21:31)
[2019-06-17] MEDS: Senna TAB 8.6 mg* TAB PO SCH ×2 (09:07→21:31)
[2019-06-17] MEDS: cloNIDine TAB* 0.1 MG PO SCH ×2 (09:07→21:30)
[2019-06-17] MEDS: Pantoprazole TAB * 40 MG TAB PO SCH (09:07)
[2019-06-17] MEDS: Ferrous Sulfate TAB* 325 MG PO SCH (09:08)
[2019-06-17] MEDS: glipiZIDE TAB* 5 MG PO SCH (09:08)
[2019-06-17] MEDS: Azithromycin TAB* 250 MG PO SCH (09:08)
[2019-06-17] MEDS: Cetirizine* 10 MG TAB PO SCH (09:08)
[2019-06-17] MEDS: Insulin LISPRO* 1 UNITS UNIT SUBCUT SCH ×4 (09:09→21:30)
--- NOTE | 2019-06-17 14:36 | PN ---
Subjective Date of Service: 06/17/19 Interval History: Reports improvement in breathing. Reports that his house is infested with bed bugs.Discussed with case management Family History: Unchanged from Admission Social History: Unchanged from Admission Past Medical History: Unchanged from Admission Objective Active Medications: Acetaminophen (Tylenol Tab*) 650 mg PO Q4H PRN PRN Reason: PAIN-MILD/TEMP >/= 100.4 Last Admin: 06/14/19 23:48 Dose: 650 mg Hydrocodone Bitart/Acetaminophen ([place] 5-325 Tab*) 1 tab PO Q6HR PRN PRN Reason: PAIN - MODERATE Last Admin: 06/16/19 23:26 Dose: 1 tab Albuterol (Ventolin Hfa Inhaler*) 2 puff INH Q2H PRN PRN Reason: SOB/WHEEZING Last Admin: 06/15/19 08:53 Dose: 2 puff Albuterol/Ipratropium (Duoneb (Albuterol 2.5 Mg/Ipratropium 0.5 Mg)) 1 neb INH Q4H PRN PRN Reason: SOB/WHEEZING Amlodipine Besylate (Norvasc Tab*) 10 mg PO DAILY [facility] Last Admin: 06/17/19 09:06 Dose: 10 mg Aspirin (Aspirin Ec Tab*) 81 mg PO DAILY [facility] Last Admin: 06/17/19 09:06 Dose: 81 mg Atorvastatin Calcium (Lipitor*) 5 mg PO DAILY [facility] Last Admin: 06/17/19 09:07 Dose: 5 mg Azithromycin (Zithromax Tab*) 250 mg PO DAILY [facility] Last Admin: 06/17/19 09:08 Dose: 250 mg Buspirone HCl (Buspar Tab *) 15 mg PO TID [facility] Last Admin: 06/17/19 09:06 Dose: 15 mg Cetirizine HCl (Zyrtec*) 10 mg PO DAILY [facility] Last Admin: 06/17/19 09:08 Dose: 10 mg Clonidine HCl (Catapres Tab*) 0.2 mg PO BID [facility] Last Admin: 06/17/19 09:07 Dose: 0.2 mg Clotrimazole (Clotrimazole 1%*) 1 applic TOPICAL DAILY PRN PRN Reason: RASH Dextrose (Dextrose 50% Vial 50 Ml*) 25 ml IV PUSH .FOR FS < 60 - SS PRN PRN Reason: FS < 60 Docusate Sodium (Colace Cap*) 100 mg PO BID [facility] Last Admin: 06/17/19 09:07 Dose: 100 mg Ferrous Sulfate (Ferrous Sulfate Tab*) 325 mg PO DAILY [facility] Last Admin: 06/17/19 09:08 Dose: 325 mg Fluticasone Propionate (Flonase Nasal [place] 50mcg*) 2 spray BOTH NARES DAILY [facility] Last Admin: 06/17/19 09:05 Dose: 2 spray Furosemide (Lasix Iv*) 40 mg IV 0800,1700 [facility] Last Admin: 06/17/19 09:06 Dose: 40 mg Glipizide (Glucotrol Tab*) 2.5 mg PO DAILY [facility] Last Admin: 06/17/19 09:08 Dose: 2.5 mg Guaifenesin (Mucinex*) 600 mg PO Q12HR [facility] Last Admin: 06/17/19 09:07 Dose: 600 mg Insulin Human Lispro (Humalog*) 0 units SUBCUT ACHS [facility]; Protocol Last Admin: 06/17/19 12:52 Dose: Not Given Metoprolol Succinate (Toprol Xl Tab*) 200 mg PO DAILY [facility] Last Admin: 06/17/19 09:06 Dose: 200 mg Pantoprazole Sodium (Protonix Tab*) 40 mg PO DAILY [facility] Last Admin: 06/17/19 09:07 Dose: 40 mg Pharmacy Profile Note (Coumadin Per Pharmacy*) 1 note FOLLOW UP .PER PHARMACY PROTOC [facility]; Protocol Pharmacy Profile Note (Coumadin Daily Reminder*) 1 note FOLLOW UP 1700 [facility] Polymyxin/Trimethoprim Sulfate (Polytrim Ophth*) 1 drop BOTH EYES Q3H [facility] Last Admin: 06/17/19 09:05 Dose: 1 drop Senna (Senokot 8.6 Mg Tab*) 1 tab PO BID [facility] Last Admin: 06/17/19 09:07 Dose: 1 tab Tizanidine HCl (Zanaflex Tab*) 2 mg PO TID PRN PRN Reason: SPASMS - MUSCLE Last Admin: 06/14/19 23:48 Dose: 2 mg Warfarin Sodium (Coumadin Tab(*)) 2.5 mg PO ONCE ONE Stop: 06/17/19 17:01 Vital Signs - 8 hr 06/17/19 06/17/19 06/17/19 07:15 08:00 11:15 Temperature 97.7 F 98.2 F Pulse Rate 95 79 Respiratory 18 18 15 Rate Blood Pressure 128/81 124/61 (mmHg) O2 Sat by Pulse 97 97 Oximetry Oxygen Devices in Use Now: None Eyes: No Scleral Icterus Neck: NL Appearance and Movements; NL JVP Respiratory: Symmetrical Chest Expansion and Respiratory Effort, - - crackles bases improved Cardiovascular: NL Sounds; No Murmurs; No JVD Abdominal: NL Sounds; No Tenderness; No Distention Extremities: - - 2+ Edema Neurological: Alert and Oriented x 3 Result Diagrams: 06/17/19 04:19 06/17/19 04:19 Microbiology and Other Data: Microbiology 06/15/19 14:50 Stool Occult Blood (OLVIN) - Final Stool 06/14/19 12:00 Aerobic Blood Culture - Preliminary Blood Venous No Growth Day 1 Anaerobic Blood Culture - Preliminary No Growth Day 1 06/14/19 11:46 Aerobic Blood Culture - Preliminary Blood Venous No Growth Day 1 Anaerobic Blood Culture - Preliminary No Growth Day 1 Assess/Plan/Problems-Billing Assessment: This is a 69 year old male with a past medical history of TBI, CKD, HTN, DMII, and Afib who was admitted on 06/14/19 with bronchitis and CHF exacerbation. - Patient Problems (1) CHF exacerbation Current Visit: Yes Status: Acute Code(s): I50.9 - HEART FAILURE, UNSPECIFIED SNOMED Code(s): 394813223 Comment: -Patient did not explicitly have a stated history of CHF though was on a diuretic at home. BNP upon admission was 585. Started on IV lasix. Daily weights ordered. -TTE showed EF of 55-60%, new mild aoritc stenosis. Both atria dilated. -Continue lasix 40 mg iv bid currently and pt can be transitioned to lower dose lasix or titrated on the torsemide he is on at home tomorrow (2) Bronchitis Current Visit: Yes Status: Acute Code(s): J40 - BRONCHITIS, NOT SPECIFIED ACUTE OR CHRONIC SNOMED Code(s): 95689350 Comment: -Continuing to cough with difficulty bringing up sputum. -Continue guaifenesin, azithromycin (3) Atrial fibrillation Current Visit: Yes Status: Acute Code(s): I48.91 - UNSPECIFIED ATRIAL FIBRILLATION SNOMED Code(s): 63221962 Comment: -EKG upon admission showed AFIB. This is a chronic issue for him. Continue metoprolol. -Warfarin was held initially with the concern that patient had an active bleed. Anemia likely due to bed bug infestation. Started Coumadin -Coumadin dosing per pharmacy (4) Anemia Current Visit: Yes Status: Acute Code(s): D64.9 - ANEMIA, UNSPECIFIED SNOMED Code(s): 404234380 Comment: -Stool occult negative. No other overt signs of bleeding. on ferrous sulfate daily. (5) Bedbug bite Current Visit: Yes Status: Acute Code(s): W57.XXXA - BIT/STUNG BY NONVENOM INSECT & OTH NONVENOM ARTHROPODS, INIT SNOMED Code(s): 838947084 Comment: -Patient stated that his apartment has been fumagated multiple times but infestation keeps returning because other apartments in his building have infestations. -Continue clotromazole for pruritis related to bedbugs. (6) Conjunctivitis Current Visit: Yes Status: Acute Code(s): H10.9 - UNSPECIFIED CONJUNCTIVITIS SNOMED Code(s): 5610645 Comment: -Continue polymixin B drops x 5 days (7) Diabetes type 2, controlled Current Visit: Yes Status: Acute Code(s): E11.9 - TYPE 2 DIABETES MELLITUS WITHOUT COMPLICATIONS SNOMED Code(s): 02372755 Comment: -BG 150-230's. Continue glipizide and sliding scale insulin with BG checks ACHS. (8) GERD (gastroesophageal reflux disease) Current Visit: Yes Status: Acute Code(s): K21.9 - GASTRO-ESOPHAGEAL REFLUX DISEASE WITHOUT ESOPHAGITIS SNOMED Code(s): 532684454 Comment: -Continue protonix. No reports of indigestion. (9) Hyperlipidemia Current Visit: Yes Status: Acute Code(s): E78.5 - HYPERLIPIDEMIA, UNSPECIFIED SNOMED Code(s): 15869789 Comment: -Continue atorvastatin. (10) Hypertension Current Visit: Yes Status: Acute Code(s): I10 - ESSENTIAL (PRIMARY) HYPERTENSION SNOMED Code(s): 58453197 Comment: -SBP's 120-140's. -Continue clonidine, amlodipine. Torsemide on hold for now. (11) DVT prophylaxis Current Visit: Yes Status: Acute Code(s): Z29.9 - ENCOUNTER FOR PROPHYLACTIC MEASURES, UNSPECIFIED SNOMED Code(s): 118899029 Comment: -On lovenox to bridge coumadin. (12) Full code status Current Visit: Yes Status: Acute Code(s): Z78.9 - OTHER SPECIFIED HEALTH STATUS SNOMED Code(s): 459960039 Status and Disposition: Multiple social issues. PT/OT eval/ Rehab eval
[2019-06-17] MEDS: HYDROcodone/ACETAMIN 5-325 MG* 1 TAB PO PRN (14:57)
[2019-06-17] MEDS ORDERED: Warfarin TAB(*) 2.5 MG PO ONE (17:00)
[2019-06-17] MEDS: tiZANidine TAB* 2 MG PO PRN (23:30)
[2019-06-17] MEDS: Acetaminophen TAB* 325 MG PO PRN (23:30)
[2019-06-18] MEDS: Polymyx/Trimethoprim OPTH* 10 ML BTL BOTH EYES SCH ×6 (00:54→15:38)
[2019-06-18 05:52] LABS: ABS Basophils 0.1 10^3/ul (0-0.2); ABS Eosinophils 0.4 10^3/ul (0-0.6); ABS Lymphocytes 1.9 10^3/ul (1.0-4.8); ABS Monocytes 1.1 10^3/ul (0-0.8); ABS Neutrophils 4.6 10^3/ul (1.5-7.7); Eosinophil % 4.4 %; Hematocrit 29 % (42-52); Hemoglobin 8.9 g/dL (14.0-18.0); Lymphocyte % 23.9 %; Mean Corpuscular HGB Conc 31 g/dL (31-36); Mean Corpuscular Hemoglobin 21 pg (27-31); Mean Corpuscular Volume 69 fL (80-94); Mean Platelet Volume 8.2 fL (7.4-10.4); Platelet Count 367 10^3/uL (150-450); Red Blood Count 4.25 10^6 /uL (4.18-5.48); Red Cell Distribution Width 18 % (10-15)
[2019-06-18 05:58] LABS: INR 1.31 (0.82-1.09)
[2019-06-18 06:14] LABS: BUN/Creatinine Ratio 12.5 (8-20); Calcium 8.9 mg/dL (8.6-10.3); EGFR African American 52.1 (>60); EGFR Non-African American 43.1 (>60); Potassium 3.9 mmol/L (3.5-5.0)
[2019-06-18] MEDS: Insulin LISPRO* 1 UNITS UNIT SUBCUT SCH ×4 (09:12→21:34)
[2019-06-18] MEDS: Fluticasone NASAL SPRAY 50MCG* 16 gm SPRAY BTL BOTH NARES SCH (09:13)
[2019-06-18] MEDS: Metoprolol Succinate XL TAB* 100 MG PO SCH (09:13)
[2019-06-18] MEDS: guaiFENesin ER TAB 600 MG PO SCH ×2 (09:14→21:34)
[2019-06-18] MEDS: Senna TAB 8.6 mg* TAB PO SCH ×2 (09:15→21:34)
[2019-06-18] MEDS: Ferrous Sulfate TAB* 325 MG PO SCH (09:15)
[2019-06-18] MEDS: Docusate CAP* 100 MG PO SCH ×2 (09:16→21:34)
[2019-06-18] MEDS: busPIRone TAB* 15 MG PO SCH ×3 (09:16→21:34)
[2019-06-18] MEDS: Aspirin EC TAB* 81 MG TAB.EC PO SCH (09:16)
[2019-06-18] MEDS: Azithromycin TAB* 250 MG PO SCH (09:16)
[2019-06-18] MEDS: amLODIPine TAB* 5 MG PO SCH (09:17)
[2019-06-18] MEDS: Pantoprazole TAB * 40 MG TAB PO SCH (09:22)
[2019-06-18] MEDS: Atorvastatin* 10 MG TAB PO SCH (09:22)
[2019-06-18] MEDS: cloNIDine TAB* 0.1 MG PO SCH ×2 (09:24→21:34)
[2019-06-18] MEDS: Cetirizine* 10 MG TAB PO SCH (09:24)
[2019-06-18] MEDS: glipiZIDE TAB* 5 MG PO SCH (09:24)
[2019-06-18] MEDS: Furosemide IV* 10 MG/ML VIAL (40 MG) IV SCH ×2 (09:25→17:01)
[2019-06-18] MEDS: HYDROcodone/ACETAMIN 5-325 MG* 1 TAB PO PRN ×3 (09:40→23:15)
--- NOTE | 2019-06-18 15:50 | PN ---
Subjective Date of Service: 06/18/19 Interval History: Breathing is "up and down" cough is non productive He is not allowing anyone to unwrap his legs and view his chronic ulcer Family History: Unchanged from Admission Social History: Unchanged from Admission Past Medical History: Unchanged from Admission Objective Active Medications: Acetaminophen (Tylenol Tab*) 650 mg PO Q4H PRN PRN Reason: PAIN-MILD/TEMP >/= 100.4 Last Admin: 06/17/19 23:30 Dose: 650 mg Hydrocodone Bitart/Acetaminophen ([place] 5-325 Tab*) 1 tab PO Q6HR PRN PRN Reason: PAIN - MODERATE Last Admin: 06/18/19 09:40 Dose: 1 tab Albuterol (Ventolin Hfa Inhaler*) 2 puff INH Q2H PRN PRN Reason: SOB/WHEEZING Last Admin: 06/15/19 08:53 Dose: 2 puff Albuterol/Ipratropium (Duoneb (Albuterol 2.5 Mg/Ipratropium 0.5 Mg)) 1 neb INH Q4H PRN PRN Reason: SOB/WHEEZING Last Admin: 06/17/19 23:15 Dose: 1 neb Amlodipine Besylate (Norvasc Tab*) 10 mg PO DAILY [facility] Last Admin: 06/18/19 09:17 Dose: 10 mg Aspirin (Aspirin Ec Tab*) 81 mg PO DAILY [facility] Last Admin: 06/18/19 09:16 Dose: 81 mg Atorvastatin Calcium (Lipitor*) 5 mg PO DAILY [facility] Last Admin: 06/18/19 09:22 Dose: 5 mg Azithromycin (Zithromax Tab*) 250 mg PO DAILY [facility] Last Admin: 06/18/19 09:16 Dose: 250 mg Buspirone HCl (Buspar Tab *) 15 mg PO TID [facility] Last Admin: 06/18/19 15:38 Dose: 15 mg Cetirizine HCl (Zyrtec*) 10 mg PO DAILY [facility] [place] Last Admin: 06/18/19 09:24 Dose: 10 mg Clonidine HCl (Catapres Tab*) 0.2 mg PO BID [facility] [place] Last Admin: 06/18/19 09:24 Dose: 0.2 mg Clotrimazole (Clotrimazole 1%*) 1 applic TOPICAL DAILY PRN PRN Reason: RASH Dextrose (Dextrose 50% Vial 50 Ml*) 25 ml IV PUSH .FOR FS < 60 - SS PRN PRN Reason: FS < 60 Docusate Sodium (Colace Cap*) 100 mg PO BID [facility] [place] Last Admin: 06/18/19 09:16 Dose: 100 mg Ferrous Sulfate (Ferrous Sulfate Tab*) 325 mg PO DAILY [facility] [place] Last Admin: 06/18/19 09:15 Dose: 325 mg Fluticasone Propionate (Flonase Nasal [place] 50mcg*) 2 spray BOTH NARES DAILY [facility] [place] Last Admin: 06/18/19 09:13 Dose: 2 spray Furosemide (Lasix Iv*) 40 mg IV 0800,1700 [facility] [place] Last Admin: 06/18/19 09:25 Dose: 40 mg Glipizide (Glucotrol Tab*) 2.5 mg PO DAILY [facility] [place] Last Admin: 06/18/19 09:24 Dose: 2.5 mg Guaifenesin (Mucinex*) 600 mg PO Q12HR [facility] [place] Last Admin: 06/18/19 09:14 Dose: 600 mg Insulin Human Lispro (Humalog*) 0 units SUBCUT ACHS [facility]; Protocol Last Admin: 06/18/19 12:43 Dose: 6 unit Metoprolol Succinate (Toprol Xl Tab*) 200 mg PO DAILY [facility] [place] Last Admin: 06/18/19 09:13 Dose: 200 mg Pantoprazole Sodium (Protonix Tab*) 40 mg PO DAILY [facility] [place] Last Admin: 06/18/19 09:22 Dose: 40 mg Pharmacy Profile Note (Coumadin Per Pharmacy*) 1 note FOLLOW UP .PER PHARMACY PROTOC [facility] [place]; Protocol Pharmacy Profile Note (Coumadin Daily Reminder*) 1 note FOLLOW UP 1700 [facility] [place] Last Admin: 06/18/19 12:47 Dose: Not Given Polymyxin/Trimethoprim Sulfate (Polytrim Ophth*) 1 drop BOTH EYES Q3H [facility] [place] Last Admin: 06/18/19 15:38 Dose: 1 drop Senna (Senokot 8.6 Mg Tab*) 1 tab PO BID [facility] [place] Last Admin: 06/18/19 09:15 Dose: 1 tab Tizanidine HCl (Zanaflex Tab*) 2 mg PO TID PRN PRN Reason: SPASMS - MUSCLE Last Admin: 06/17/19 23:30 Dose: 2 mg Warfarin Sodium (Coumadin Tab(*)) 2.5 mg PO ONCE ONE Stop: 06/18/19 17:01 Vital Signs - 8 hr 06/18/19 06/18/19 06/18/19 08:00 09:40 11:59 Temperature 97.5 F 97.3 F Pulse Rate 90 72 Respiratory 18 18 18 Rate Blood Pressure 118/80 95/61 (mmHg) O2 Sat by Pulse 98 100 Oximetry 06/18/19 06/18/19 12:20 15:39 Temperature Pulse Rate Respiratory 20 Rate Blood Pressure 105/64 (mmHg) O2 Sat by Pulse Oximetry Oxygen Devices in Use Now: None Appearance: sitting in chair, NAD Eyes: No Scleral Icterus, PERRLA Ears/Nose/Mouth/Throat: NL Teeth, Lips, Gums, Clear Oropharnyx Neck: NL Appearance and Movements; NL JVP, Trachea Midline Respiratory: Symmetrical Chest Expansion and Respiratory Effort, - - diminished throughout, faint rhonchi right base Cardiovascular: RRR Abdominal: NL Sounds; No Tenderness; No Distention, No Hepatosplenomegaly Extremities: - - at least 2+ LE edema, wrapped and will not allow this author or others to unwrap Neurological: Alert and Oriented x 3 Result Diagrams: 06/18/19 05:19 06/18/19 05:19 Microbiology and Other Data: Microbiology 06/15/19 14:50 Stool Occult Blood (OLVIN) - Final Stool 06/14/19 12:00 Aerobic Blood Culture - Preliminary Blood Venous No Growth Day 1 Anaerobic Blood Culture - Preliminary No Growth Day 1 06/14/19 11:46 Aerobic Blood Culture - Preliminary Blood Venous No Growth Day 1 Anaerobic Blood Culture - Preliminary No Growth Day 1 Assess/Plan/Problems-Billing Assessment: This is a 69 year old male with a past medical history of TBI, CKD, HTN, DMII, and Afib who was admitted on 06/14/19 with bronchitis and CHF exacerbation. - Patient Problems (1) CHF exacerbation Comment: -on diuretic at home without formal dx -HFpEF with elevated BNP although CXR not convincing for fluid overload on presentation -Daily weights ordered. -TTE showed EF of 55-60%, new mild aoritc stenosis. Both atria dilated. -Continue lasix 40 mg iv bid currently and pt can be transitioned to lower dose lasix or titrated on the torsemide he is on at home tomorrow (2) Lower limb ulcer Comment: treated at wound care. Will not allow anyone to view or treat here (3) Anemia Comment: -Stool occult negative. No other overt signs of bleeding. on ferrous sulfate daily. -unclear when last cscope was (4) Atrial fibrillation Comment: -Continue metoprolol. -coumadin held on presentation in setting of anemia now restarted -Coumadin dosing per pharmacy (5) Bedbug bite Comment: -Patient stated that his apartment has been fumagated multiple times but infestation keeps returning because other apartments in his building have infestations. -Continue clotromazole for pruritis related to bedbugs. (6) Bronchitis Comment: -Continue guaifenesin -finished azithromycin 5 days 06/18 (7) Conjunctivitis Comment: -finished polymixin B drops x 5 days 06/18 -resolved (8) Diabetes type 2, controlled Comment: - Added hba1c - Continue glipizide and sliding scale insulin with BG checks ACHS. (9) Hypertension Comment: -Continue clonidine, amlodipine. Torsemide on hold for now while receiving lasix IV (10) DVT prophylaxis Comment: -On lovenox for DVT ppx -coumadin restarted for afib Status and Disposition: Pending [facility] placement
[2019-06-18] MEDS ORDERED: Warfarin TAB(*) 2.5 MG PO ONE (17:00)
[2019-06-19] MEDS: HYDROcodone/ACETAMIN 5-325 MG* 1 TAB PO PRN ×3 (05:18→20:20)
[2019-06-19 05:53] LABS: INR 1.3 (0.82-1.09)
[2019-06-19 05:58] LABS: BUN/Creatinine Ratio 12.8 (8-20); Calcium 8.9 mg/dL (8.6-10.3); EGFR African American 50.7 (>60); EGFR Non-African American 41.9 (>60); Magnesium 2.1 mg/dL (1.9-2.7); Potassium 4.1 mmol/L (3.5-5.0)
[2019-06-19] MEDS: Fluticasone NASAL SPRAY 50MCG* 16 gm SPRAY BTL BOTH NARES SCH (08:43)
[2019-06-19] MEDS: Furosemide IV* 10 MG/ML VIAL (40 MG) IV SCH (08:44)
[2019-06-19] MEDS: Insulin LISPRO* 1 UNITS UNIT SUBCUT SCH ×4 (08:44→20:21)
[2019-06-19] MEDS: guaiFENesin ER TAB 600 MG PO SCH ×2 (08:46→20:20)
[2019-06-19] MEDS: cloNIDine TAB* 0.1 MG PO SCH ×2 (08:46→20:20)
[2019-06-19] MEDS: Aspirin EC TAB* 81 MG TAB.EC PO SCH (08:46)
[2019-06-19] MEDS: glipiZIDE TAB* 5 MG PO SCH (08:46)
[2019-06-19] MEDS: Senna TAB 8.6 mg* TAB PO SCH ×2 (08:46→20:23)
[2019-06-19] MEDS: Cetirizine* 10 MG TAB PO SCH (08:46)
[2019-06-19] MEDS: Docusate CAP* 100 MG PO SCH ×2 (08:46→20:21)
[2019-06-19] MEDS: busPIRone TAB* 15 MG PO SCH ×3 (08:46→20:20)
[2019-06-19] MEDS: amLODIPine TAB* 5 MG PO SCH (08:48)
[2019-06-19] MEDS: Atorvastatin* 10 MG TAB PO SCH (08:49)
[2019-06-19] MEDS: Ferrous Sulfate TAB* 325 MG PO SCH ×2 (08:49→20:21)
[2019-06-19] MEDS: Metoprolol Succinate XL TAB* 100 MG PO SCH (08:50)
[2019-06-19] MEDS: Pantoprazole TAB * 40 MG TAB PO SCH ×2 (09:27→20:21)
--- NOTE | 2019-06-19 12:43 | PN ---
Subjective Date of Service: 06/19/19 Interval History: Patient seen today, no issue overnight. He remains with significant dependant leg edema bilateral. OTILIA wrap applied. no fever or chills Past Medical History: Unchanged from Admission Objective Active Medications: Acetaminophen (Tylenol Tab*) 650 mg PO Q4H PRN PRN Reason: PAIN-MILD/TEMP >/= 100.4 Last Admin: 06/17/19 23:30 Dose: 650 mg Hydrocodone Bitart/Acetaminophen ([place] 5-325 Tab*) 1 tab PO Q6HR PRN PRN Reason: PAIN - MODERATE Last Admin: 06/19/19 12:11 Dose: 1 tab Albuterol (Ventolin Hfa Inhaler*) 2 puff INH Q2H PRN PRN Reason: SOB/WHEEZING Last Admin: 06/15/19 08:53 Dose: 2 puff Albuterol/Ipratropium (Duoneb (Albuterol 2.5 Mg/Ipratropium 0.5 Mg)) 1 neb INH Q4H PRN PRN Reason: SOB/WHEEZING Last Admin: 06/17/19 23:15 Dose: 1 neb Amlodipine Besylate (Norvasc Tab*) 5 mg PO DAILY [facility] Aspirin (Aspirin Ec Tab*) 81 mg PO DAILY [facility] Last Admin: 06/19/19 08:46 Dose: 81 mg Atorvastatin Calcium (Lipitor*) 5 mg PO DAILY [facility] Last Admin: 06/19/19 08:49 Dose: 5 mg Bumetanide (Bumex Tab*) 1 mg PO BID [facility] Buspirone HCl (Buspar Tab *) 15 mg PO TID [facility] Last Admin: 06/19/19 08:46 Dose: 15 mg Cetirizine HCl (Zyrtec*) 10 mg PO DAILY [facility] Last Admin: 06/19/19 08:46 Dose: 10 mg Clonidine HCl (Catapres Tab*) 0.2 mg PO BID [facility] Last Admin: 06/19/19 08:46 Dose: 0.2 mg Clotrimazole (Clotrimazole 1%*) 1 applic TOPICAL DAILY PRN PRN Reason: RASH Dextrose (Dextrose 50% Vial 50 Ml*) 25 ml IV PUSH .FOR FS < 60 - SS PRN PRN Reason: FS < 60 Docusate Sodium (Colace Cap*) 100 mg PO BID [facility] Last Admin: 06/19/19 08:46 Dose: 100 mg Ferrous Sulfate (Ferrous Sulfate Tab*) 325 mg PO DAILY [facility] Last Admin: 06/19/19 08:49 Dose: 325 mg Fluticasone Propionate (Flonase Nasal [place] 50mcg*) 2 spray BOTH NARES DAILY [facility] Last Admin: 06/19/19 08:43 Dose: 2 spray Glipizide (Glucotrol Tab*) 2.5 mg PO DAILY [facility] Last Admin: 06/19/19 08:46 Dose: 2.5 mg Guaifenesin (Mucinex*) 600 mg PO Q12HR [facility] Last Admin: 06/19/19 08:46 Dose: 600 mg Insulin Human Lispro (Humalog*) 0 units SUBCUT ACHS [facility]; Protocol Last Admin: 06/19/19 08:44 Dose: 2 unit Metoprolol Succinate (Toprol Xl Tab*) 200 mg PO DAILY [facility] Last Admin: 06/19/19 08:50 Dose: 200 mg Pantoprazole Sodium (Protonix Tab*) 40 mg PO DAILY [facility] Last Admin: 06/19/19 09:27 Dose: 40 mg Pharmacy Profile Note (Coumadin Per Pharmacy*) 1 note FOLLOW UP .PER PHARMACY PROTOC [facility]; Protocol Pharmacy Profile Note (Coumadin Daily Reminder*) 1 note FOLLOW UP 1700 [facility] Last Admin: 06/18/19 17:00 Dose: 1 note Senna (Senokot 8.6 Mg Tab*) 1 tab PO BID [facility] Last Admin: 06/19/19 08:46 Dose: 1 tab Tizanidine HCl (Zanaflex Tab*) 2 mg PO TID PRN PRN Reason: SPASMS - MUSCLE Last Admin: 06/17/19 23:30 Dose: 2 mg Vital Signs - 8 hr 06/19/19 06/19/19 06/19/19 05:18 07:15 07:20 Temperature 97.8 F Pulse Rate 77 Respiratory 18 24 22 Rate Blood Pressure 122/81 (mmHg) O2 Sat by Pulse 99 Oximetry 06/19/19 06/19/19 08:00 12:11 Temperature Pulse Rate Respiratory 24 18 Rate Blood Pressure (mmHg) O2 Sat by Pulse Oximetry Oxygen Devices in Use Now: None Appearance: obese, in chair, no distress. Eyes: No Scleral Icterus, - - EOMI Ears/Nose/Mouth/Throat: NL Teeth, Lips, Gums, Mucous Membranes Moist Neck: NL Appearance and Movements; NL JVP, Trachea Midline Respiratory: - - fine crackles at bases. transmitted upper airway breathsounds Cardiovascular: - - irregularly irregular, rate controlled. + 2 edema Abdominal: NL Sounds; No Tenderness; No Distention, - - obese Extremities: - - + edema, wrapped in OTILIA wrap. chronic erythema depedant to gravity. not warm Result Diagrams: 06/18/19 05:19 06/19/19 05:26 Microbiology and Other Data: Microbiology 06/15/19 14:50 Stool Occult Blood ([facility]) - Final Stool 06/14/19 12:00 Aerobic Blood Culture - Preliminary Blood Venous No Growth Day 1 Anaerobic Blood Culture - Preliminary No Growth Day 1 06/14/19 11:46 Aerobic Blood Culture - Preliminary Blood Venous No Growth Day 1 Anaerobic Blood Culture - Preliminary No Growth Day 1 Assess/Plan/Problems-Billing Assessment: This is a 69 year old male with a past medical history of TBI, CKD, HTN, DMII, and Afib who was admitted on 06/14/19 with bronchitis and CHF exacerbation suggestive diastollic bases on his normal EF. - Patient Problems (1) Anemia Current Visit: Yes Status: Acute Code(s): D64.9 - ANEMIA, UNSPECIFIED SNOMED Code(s): 934976318 Comment: - Stool occult negative x 1. will reoder - Iron pannel suggestive of iron deficieny anemia with low ferrittin 14.2; TIBC >466; Iron <20; and MCV 69's. His Hct a year ago was normal - no active bleed. will request another stool set (unfortunately he's been on iron- challenging situations). - Given his history of afib that require anticoagulation he will need to be evaluated for GI loss. - Will call GI consult for their input - Will request B12, Folate. (2) CHF exacerbation Current Visit: Yes Status: Acute Code(s): I50.9 - HEART FAILURE, UNSPECIFIED SNOMED Code(s): 825033462 Comment: - On diuretic at home without formal dx. May it was due to his leg edema, possible pulmonary hypertension given his right atrial dilations - HFpEF 65% on his current echo 06/15/19 with elevated BNP 585. Although, his initial CXR not convincing for fluid overload. I suspect diastollic dysfunction exacerbated by his anemia. Both atria dilated due to his afib and possible pulmonary hypertension. His pulmonary pressure could not be measure on his echo. - Currently on lasix 40 mg IV bid. Home meds was torsemide 100 mg daily. Will change him to bumex 1 mg bid. Will recheck his CXR in am (3) Atrial fibrillation Current Visit: Yes Status: Acute Code(s): I48.91 - UNSPECIFIED ATRIAL FIBRILLATION SNOMED Code(s): 97183933 Comment: -Continue metoprolol -XL 200 mg daily. - coumadin held on presentation in setting of anemia now restarted. Given his iron deficiency anemia, I did consult with GI to consider colonoscpy/EGD to help guide risk/benefit of anticoagulation if he does have GI sourse of bleed -Coumadin dosing per pharmacy (4) Bedbug bite Current Visit: Yes Status: Acute Code(s): W57.XXXA - BIT/STUNG BY NONVENOM INSECT & OTH NONVENOM ARTHROPODS, INIT SNOMED Code(s): 100480059 Comment: - Patient stated that his apartment has been fumagated multiple times but infestation keeps returning because other apartments in his building have infestations. - APS involved. Awaiting placement - Continue clotromazole for pruritis related to bedbugs. (5) Bronchitis Current Visit: Yes Status: Acute Code(s): J40 - BRONCHITIS, NOT SPECIFIED ACUTE OR CHRONIC SNOMED Code(s): 20703643 Comment: -Continue guaifenesin - completed azithromycin 5 days 06/18 (6) Diabetes type 2, controlled Current Visit: Yes Status: Acute Code(s): E11.9 - TYPE 2 DIABETES MELLITUS WITHOUT COMPLICATIONS SNOMED Code(s): 35016299 Comment: - HgbA1c 7.3 - Continue glipizide and sliding scale insulin with BG checks ACHS. (7) GERD (gastroesophageal reflux disease) Current Visit: Yes Status: Acute Code(s): K21.9 - GASTRO-ESOPHAGEAL REFLUX DISEASE WITHOUT ESOPHAGITIS SNOMED Code(s): 092801952 Comment: -Continue protonix will increase to bid - Given his iron deficiency, and drop in H/H from baseline will consult GI (8) Hyperlipidemia Current Visit: Yes Status: Acute Code(s): E78.5 - HYPERLIPIDEMIA, UNSPECIFIED SNOMED Code(s): 03419451 Comment: -Continue atorvastatin 5mg hs. (9) Hypertension Current Visit: Yes Status: Acute Code(s): I10 - ESSENTIAL (PRIMARY) HYPERTENSION SNOMED Code(s): 44879697 Comment: -Continue clonidine, but will decrease his amlodipine to 5 mg given his anemia. BP stable - Continue toprol-XL 200 mg daily (10) DVT prophylaxis Current Visit: Yes Status: Acute Code(s): Z29.9 - ENCOUNTER FOR PROPHYLACTIC MEASURES, UNSPECIFIED SNOMED Code(s): 475234163 Comment: -On lovenox for DVT ppx -coumadin restarted for afib Status and Disposition: Pending [facility] placement
[2019-06-19] MEDS ORDERED: Warfarin TAB(*) 2.5 MG PO ONE (17:00)
--- NOTE | 2019-06-19 18:06 | CONSULT ---
Subjective Date of Service: 06/19/19 Family History: Unchanged from Admission Social History: Unchanged from Admission Past Medical History: Unchanged from Admission Review of Systems - Measurements Intake and Output: Intake and Output Last 24 Hours 06/17/19 06/18/19 06/19/19 06/20/19 06:59 06:59 06:59 06:59 Intake Total 1999 720 1815 260 Balance 1999 720 1815 260 Weight 308 lb 5 oz 309 lb Intake: IV Fluids 15 NS (0.9%) 15 Oral 1999 720 1800 260 Other: Estimated Void Medium Medium Medium # Bowel Movements 1 0 0 Estimated Stool Amount Medium # Voids 6 0 1 Objective Active Medications: Acetaminophen (Tylenol Tab*) 650 mg PO Q4H PRN PRN Reason: PAIN-MILD/TEMP >/= 100.4 Last Admin: 06/17/19 23:30 Dose: 650 mg Hydrocodone Bitart/Acetaminophen ([place] 5-325 Tab*) 1 tab PO Q6HR PRN PRN Reason: PAIN - MODERATE Last Admin: 06/19/19 12:11 Dose: 1 tab Albuterol (Ventolin Hfa Inhaler*) 2 puff INH Q2H PRN PRN Reason: SOB/WHEEZING Last Admin: 06/15/19 08:53 Dose: 2 puff Albuterol/Ipratropium (Duoneb (Albuterol 2.5 Mg/Ipratropium 0.5 Mg)) 1 neb INH Q4H PRN PRN Reason: SOB/WHEEZING Last Admin: 06/17/19 23:15 Dose: 1 neb Amlodipine Besylate (Norvasc Tab*) 5 mg PO DAILY [facility] Aspirin (Aspirin Ec Tab*) 81 mg PO DAILY [facility] Last Admin: 06/19/19 08:46 Dose: 81 mg Atorvastatin Calcium (Lipitor*) 5 mg PO DAILY [facility] Last Admin: 06/19/19 08:49 Dose: 5 mg Bumetanide (Bumex Tab*) 1 mg PO BID [facility] Buspirone HCl (Buspar Tab *) 15 mg PO TID [facility] Last Admin: 06/19/19 12:40 Dose: 15 mg Cetirizine HCl (Zyrtec*) 10 mg PO DAILY [facility] Last Admin: 06/19/19 08:46 Dose: 10 mg Clonidine HCl (Catapres Tab*) 0.2 mg PO BID [facility] Last Admin: 06/19/19 08:46 Dose: 0.2 mg Clotrimazole (Clotrimazole 1%*) 1 applic TOPICAL DAILY PRN PRN Reason: RASH Dextrose (Dextrose 50% Vial 50 Ml*) 25 ml IV PUSH .FOR FS < 60 - SS PRN PRN Reason: FS < 60 Docusate Sodium (Colace Cap*) 100 mg PO BID [facility] Last Admin: 06/19/19 08:46 Dose: 100 mg Ferrous Sulfate (Ferrous Sulfate Tab*) 325 mg PO BID [facility] Fluticasone Propionate (Flonase Nasal [place] 50mcg*) 2 spray BOTH NARES DAILY [facility] Last Admin: 06/19/19 08:43 Dose: 2 spray Glipizide (Glucotrol Tab*) 2.5 mg PO DAILY [facility] Last Admin: 06/19/19 08:46 Dose: 2.5 mg Guaifenesin (Mucinex*) 600 mg PO Q12HR [facility] Last Admin: 06/19/19 08:46 Dose: 600 mg Insulin Human Lispro (Humalog*) 0 units SUBCUT ACHS [facility]; Protocol Last Admin: 06/19/19 17:27 Dose: 1 unit Metoprolol Succinate (Toprol Xl Tab*) 200 mg PO DAILY [facility] Last Admin: 06/19/19 08:50 Dose: 200 mg Pantoprazole Sodium (Protonix Tab*) 40 mg PO BID [facility] Pharmacy Profile Note (Coumadin Per Pharmacy*) 1 note FOLLOW UP .PER PHARMACY PROTOC [facility]; Protocol Pharmacy Profile Note (Coumadin Daily Reminder*) 1 note FOLLOW UP 1700 [facility] Last Admin: 06/18/19 17:00 Dose: 1 note Senna (Senokot 8.6 Mg Tab*) 1 tab PO BID [facility] Last Admin: 06/19/19 08:46 Dose: 1 tab Tizanidine HCl (Zanaflex Tab*) 2 mg PO TID PRN PRN Reason: SPASMS - MUSCLE Last Admin: 06/17/19 23:30 Dose: 2 mg Vital Signs - 8 hr 06/19/19 06/19/19 12:11 14:25 Respiratory 18 18 Rate Oxygen Devices in Use Now: None Appearance: NAD, sitting up in a chair. Ears/Nose/Mouth/Throat: Mucous Membranes Moist Respiratory: Symmetrical Chest Expansion and Respiratory Effort Extremities: - - 2+ bilateral LE edema, unable to palpate DP or TP pulses Skin: - - See skin note below Neurological: Alert and Oriented x 3 Nutrition: Taking PO's Result Diagrams: 06/18/19 05:19 06/19/19 05:26 Diagnostic Imagin. Exam Date: 05/04/18 - VL ANK/BRACHIAL INDICES The right ankle brachial index is 0.95 equivocal abnormal with improvement from 0.85 previously. Triphasic posterior tibial and dorsalis pedis waveforms. Moderate degradation at the RIGHT ankle pulse recordings. The left ankle brachial index is 1.02 within normal range. Triphasic posterior tibial and dorsalis pedis waveforms. Mild degradation at the LEFT ankle pulse volume recording. IMPRESSION: #. Borderline abnormal RIGHT ankle brachial index with mild interval improvement. #. Normal range LEFT ankle brachial index. Skin Deviation Note - Skin Deviation Findings Right lower leg - Left lower leg - Wound Problem/Plan Assessment: Mr. Mathias is a 59 yo male with PMH significant for 1. Bilateral LE ulcers. Recommend washing the legs with soap and water, and apply lotion to the intact skin. Apply telfa to the open areas followed by rolled gauze and OTILIA wraps. Apply the OTILIA wraps from the toes to the knees, DO NOT apply OTILIA wraps to the shins only. Can consider applying Farida boots prior to discharge if able. He should continue to followup with the [facility] at discharge. 2. 3. Diet. Heart Healthy Diet 4. Code Status. Full Code Status. 5. Disposition. Inpatient, disposition per primary medicine team. TIME SPENT: Time spent 40 minutes and 30 minutes was spent with the patient at bedside discussing past medical history; removing the old dressings; assessing, measuring, and photographing the wounds; reapplying new dressings. Is Patient a Wound Clinic Patient: Yes - Dr. Buckley Current Treatment: Farida boots Attending: Blanquita Govea
[2019-06-19] MEDS: Bumetanide TAB* 2 MG PO SCH (20:19)
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
[2019-06-20] MEDS: tiZANidine TAB* 2 MG PO PRN (00:10)
[2019-06-20] MEDS: HYDROcodone/ACETAMIN 5-325 MG* 1 TAB PO PRN (02:21)
[2019-06-20 06:58] LABS: ABS Basophils 0.2 10^3/ul (0-0.2); ABS Eosinophils 0.3 10^3/ul (0-0.6); ABS Lymphocytes 1.8 10^3/ul (1.0-4.8); ABS Neutrophils 3.8 10^3/ul (1.5-7.7); Eosinophil % 4.1 %; Hematocrit 28 % (42-52); Hemoglobin 8.7 g/dL (14.0-18.0); Lymphocyte % 25.7 %; Mean Corpuscular HGB Conc 31 g/dL (31-36); Mean Corpuscular Hemoglobin 21 pg (27-31); Mean Corpuscular Volume 69 fL (80-94); Mean Platelet Volume 7.7 fL (7.4-10.4); Platelet Count 357 10^3/uL (150-450); Red Blood Count 4.05 10^6 /uL (4.18-5.48); Red Cell Distribution Width 18 % (10-15); White Blood Count 7.2 10^3/uL (3.5-10.8)
[2019-06-20 07:00] LABS: INR 1.39 (0.82-1.09)
[2019-06-20 07:14] LABS: BUN/Creatinine Ratio 13.9 (8-20); Calcium 8.9 mg/dL (8.6-10.3); EGFR African American 49.9 (>60); EGFR Non-African American 41.3 (>60); Magnesium 2.2 mg/dL (1.9-2.7); Phosphorus 3.8 mg/dL (2.5-5.0); Potassium 4.4 mmol/L (3.5-5.0)
[2019-06-20] MEDS: Atorvastatin* 10 MG TAB PO SCH (08:29)
[2019-06-20] MEDS: Pantoprazole TAB * 40 MG TAB PO SCH (08:30)
[2019-06-20] MEDS: Docusate CAP* 100 MG PO SCH (08:30)
[2019-06-20] MEDS: Senna TAB 8.6 mg* TAB PO SCH (08:31)
[2019-06-20] MEDS: Ferrous Sulfate TAB* 325 MG PO SCH (08:31)
[2019-06-20] MEDS: guaiFENesin ER TAB 600 MG PO SCH (08:31)
[2019-06-20] MEDS: Metoprolol Succinate XL TAB* 100 MG PO SCH (08:32)
[2019-06-20] MEDS: Aspirin EC TAB* 81 MG TAB.EC PO SCH (08:32)
[2019-06-20] MEDS: cloNIDine TAB* 0.1 MG PO SCH (08:32)
[2019-06-20] MEDS: glipiZIDE TAB* 5 MG PO SCH (08:33)
[2019-06-20] MEDS: Cetirizine* 10 MG TAB PO SCH (08:33)
[2019-06-20] MEDS: busPIRone TAB* 15 MG PO SCH (08:34)
[2019-06-20] MEDS: Bumetanide TAB* 2 MG PO SCH (08:34)
[2019-06-20] MEDS: Fluticasone NASAL SPRAY 50MCG* 16 gm SPRAY BTL BOTH NARES SCH (08:35)
[2019-06-20 08:41] LABS: TSH (Thyroid Stimulating Horm) 2.11 mcIU/mL (0.34-5.60)
[2019-06-20] MEDS: Insulin LISPRO* 1 UNITS UNIT SUBCUT SCH ×2 (08:41→12:09)
[2019-06-20 08:52] LABS: Folate 5.54 ng/mL (>3.99)
[2019-06-20] MEDS ORDERED: amLODIPine TAB* 5 MG PO SCH (09:00)
[2019-06-20 11:50] VITALS: BP 115/71
--- NOTE | 2019-06-20 14:09 | DS ---
CC: Dr. Chadd James; Dr. Howard Allred; Wound Clinic DATE OF ADMISSION: 06/14/2019. DATE OF DISCHARGE: 06/20/2019. FINAL DISCHARGE DIAGNOSES: 1. Iron deficiency anemia. 2. CHF exacerbation with diastolic acute. 3. Bronchitis. 4. Bed bug infestation. 5. Chronic atrial fibrillation, on chronic anticoagulation. 6. Diabetes mellitus type 2, uncontrolled. 7. GERD. 8. Hyperlipidemia. 9. Hypertension. HOSPITAL COURSE: The patient presented to [facility] on June 14 with presenting sym ptoms of shortness of breath and cough which has been ongoing for at least a few days prior to presen tation with a temperature of 99.1. The patient also was found to have bed bug infestation. He jeanette santana resides at the [facility]. Adult Protective Services was involved and currently he has been was hed, cleaned, and bed bug trap in the room was placed which did not show any evidence of bed bugs. A lso during his hospitalization, he was found to be anemic and his hematocrit was 29 when he came with a hemoglobin of 8.7. Also, his INR was noted to be therapeutic at 2.33. I started evaluating the p atient for the first day on June 19 and looking at his anemia, I did pursue his iron level. It came back to be low suggestive of iron deficiency anemia. On going back to his baseline about a yea r ago, his hemoglobin and hematocrit were normal with a hematocrit as high as 49 and 50. Therefore, I did call GI service and the patient was seen by Dr. Chadd James and given his anticoagulation wit h Warfarin, I did ask to kindly comment on whether or not the patient should undergo endoscopy. The patient was seen by Dr. Chadd James and at this time he recommended to maintain him on anticoagulat ion with Warfarin, place him on iron supplementation which I did and continue with the PPI therapy, a nd his endoscopy can be done on an elective outpatient basis. Therefore, at this time the patient, I see, has no reason to remain an inpatient. His H and H has been stable with Warfarin close monitori ng. Hematocrit has been hovering between 29 and 28. His INR, for which at one time was held, has bee n resumed very carefully and I elected to start him on 1.25 Warfarin and let it trend upward slowly w ith very close monitor as an outpatient. Regarding CHF exacerbation which had elevated BNP, normally he takes Torsemide at home with significa nt lower extremity edema. I placed him on Bumex 1 mg b.i.d. Sometimes alternating diuretic seemed to work for a patient who has been on chronic diuresis for diastolic failure and lower extremity edema. Currently he is on 1 mg b.i.d. and I will defer for the outpatient to either continue to follow-up his chemistry and further titrate it upward or downward. The patient needs to be more compliant with his diet and leg elevation. For his bed bug bites, he has been showered, new clothing was being provided by [employer]. The bed bug tra p has been empty in his room and he is being provided with steroid cream as needed for his rash. For this bronchitis, he was treated with five days of Azithromycin. Remaining of his care to continu e his current regimen as outlined below. DISCHARGE MEDICATIONS: 1. Tylenol 650 every 4 hours prn. 2. Albuterol two puffs every 2 hours as needed. 3. Amlodipine I decrease it from 10 mg down to 5 mg given his lower extremity edema and his blood pr essure has been doing well on the 5. 4. Bumex 1 mg b.i.d. to replace his home Torsemide 100. Please follow-up BMP and chemistry accordin gly. 5. Colace 100 mg b.i.d. as I start him on iron supplementation. 6. Iron 325 b.i.d. 7. Insulin sliding scale. 8. Protonix 40 mg b.i.d. substituted for his Nexium once a day. 9. Senna one tab b.i.d. 10. Continue his home [place] 5/325. 11. Clonidine 0.2 b.i.d. 12. Buspirone 15 t.i.d. 13. Simvastatin 10 daily. 14. Tizanidine 2 mg t.i.d. 15. Metoprolol XL 200 daily. 16. Mucinex 600 every 12. 17. Glipizide 2.5 every day. 18. Flonase nasal spray. 19. EpiPen prn. 20. Zyrtec 10 mg daily. 21. Aspirin 81 mg daily. 22. Coumadin 1.25 changed to 1.25 mg daily. He was taken off the 2.5 mg Coumadin Tuesday, Tuesday, Tuesday. His Amlodipine 10 mg was changed down to 5 mg. Torsemide 40 mg daily was changed to Bumex 1 mg b.i.d. Please follow-up closely for further adjustme nt regarding his BNP and further need for further diuretic. Nexium was changed to Protonix 40 b.i.d. DISCHARGE FOLLOW-UP: Follow-up with Dr. Chadd James in one month for his iron deficiency anemia. Follow-up with Dr. Howard Allred for his primary care. The patient will need to follow-up with the Wound Clinic. DISCHARGE RECOMMENDATIONS: Keep leg elevated. Adhere to diabetic and cardiac diet. DISCHARGE DISPOSITION: [facility]. CONDITION ON DISCHARGE: Stable. [id number]/[facility] #: [id number]
--- NOTE | 2019-06-20 16:46 | PN ---
Hospitalist Progress Note Date of Service: 06/20/19 B12 level came back low at 145. Patient has already departed to [facility]. I called and spoke to nurse Shayna and relayed to her the B12 level 145. I did recommend/suggest to discuss with the facility provider to consider B12 IM versus PO supplementations. She acknowledge understanding
[2019-06-20] MEDS ORDERED: Warfarin TAB(*) 2.5 MG PO ONE (17:00)
== END 2019-06-20 15:50 | DRG 291 ==
LOC: ED 11:20 → MED 15:33 → OBSVTOIN 06-15 11:00
PROVIDERS: ADMIT Internal Medicine; ATTEND Internal Medicine
DX: I13.0 Hypertensive heart and chronic kidney disease with heart failure and stage 1 through stage 4 chronic kidney disease, or unspecified chronic kidney disease (principal); I50.31 Acute diastolic (congestive) heart failure; I48.20 Chronic atrial fibrillation, unspecified; I49.5 Sick sinus syndrome; N18.3 Chronic kidney disease, stage 3 (moderate); E11.65 Type 2 diabetes mellitus with hyperglycemia; E11.22 Type 2 diabetes mellitus with diabetic chronic kidney disease; E11.622 Type 2 diabetes mellitus with other skin ulcer; G31.84 Mild cognitive impairment of uncertain or unknown etiology; K21.9 Gastro-esophageal reflux disease without esophagitis; E78.5 Hyperlipidemia, unspecified; I48.91 Unspecified atrial fibrillation; D50.9 Iron deficiency anemia, unspecified; J40 Bronchitis, not specified as acute or chronic; H10.9 Unspecified conjunctivitis; F17.210 Nicotine dependence, cigarettes, uncomplicated; B88.8 Other specified infestations; I87.2 Venous insufficiency (chronic) (peripheral); W57.XXXA Bitten or stung by nonvenomous insect and other nonvenomous arthropods, initial encounter; E66.01 Morbid (severe) obesity due to excess calories; Z68.38 Body mass index [BMI] 38.0-38.9, adult; Z79.01 Long term (current) use of anticoagulants; Z87.820 Personal history of traumatic brain injury; Z86.19 Personal history of other infectious and parasitic diseases; Z95.0 Presence of cardiac pacemaker; Z79.82 Long term (current) use of aspirin; Z79.51 Long term (current) use of inhaled steroids; Z79.899 Other long term (current) drug therapy; Z88.0 Allergy status to penicillin; Z88.1 Allergy status to other antibiotic agents; Z91.030 Bee allergy status; Z91.040 Latex allergy status; Z82.49 Family history of ischemic heart disease and other diseases of the circulatory system; Z79.84 Long term (current) use of oral hypoglycemic drugs
CPT/HCPCS: 36415; 71045; 71046; 80048; 80053; 82272; 82607; 82728; 82746; 83036; 83540; 83550; 83605; 83735; 83880; 84100; 84443; 84484; 85025; 85045; 85610; 86140; 87040; 87641; 93005; 93306; 94640; 96374; 96375; 99282; A9270-GY; C8929; G0378; G8978-GP-CJ; G8979-GP-CI; J0456; J0696; J1940

== ENCOUNTER 2020-09-16 13:46 | Inpatient (IN) ==
[2020-09-16] MEDS ORDERED: cefTRIAXone 1 gm/50 mL NS BAG 1 GM/50 ML BAG IV ONE (14:03)
[2020-09-16 14:28] LABS: Hematocrit 45 % (42-52); Hemoglobin 15.1 g/dL (14.0-18.0); Mean Corpuscular HGB Conc 33 g/dL (31-36); Mean Corpuscular Hemoglobin 30 pg (27-31); Mean Corpuscular Volume 89 fL (80-94); Platelet Count 182 10^3/uL (150-450); Red Blood Count 5.09 10^6 /uL (4.18-5.48); Red Cell Distribution Width 14 % (10-15); White Blood Count 15.1 10^3/uL (3.5-10.8)
[2020-09-16 14:38] LABS: Activated Partial Thrombo Time 39.5 seconds (26.0-38.0); INR 2.15 (0.82-1.09)
[2020-09-16 14:48] LABS: Albumin 3.8 g/dL (3.2-5.2); Albumin/Globulin Ratio 1.2 (1-3); BUN/Creatinine Ratio 17.3 (8-20); C Reactive Protein 292.64 mg/L (<8.01); Calcium 9.7 mg/dL (8.6-10.3); EGFR African American 47.5 (>60); EGFR Non-African American 39.2 (>60); Globulin 3.1 g/dL (2-4); Total Bilirubin 1.7 mg/dL (0.2-1.0); Total Protein 6.9 g/dL (6.4-8.9)
[2020-09-16 15:20] LABS: ABS Eosinophils 0.1 10^3/ul (0-0.6); ABS Monocytes 1.6 10^3/ul (0-0.8); ABS Neutrophils 12.4 10^3/ul (1.5-7.7); Eosinophil % 0.4 %; Lymphocyte % 6.6 %
[2020-09-16] MEDS ORDERED: Ondansetron 4 mg VIAL 2 MG/ML 2 ml VIAL IV PRN (15:41)
[2020-09-16] MEDS ORDERED: Dextrose 50% Syringe 50 ml 25 GM/50 ML SYRINGE IV PUSH PRN (15:48)
[2020-09-16] MEDS ORDERED: Vancomycin 1,500 MG in NS 0.9% 250 ml 250 ML IVPB SCH (16:00)
[2020-09-16] MEDS ORDERED: Albuterol HFA INHALER 8 gm MDI INH PRN (16:28)
[2020-09-16] MEDS ORDERED: Vancomycin per Pharmacy 1 EA NOTE FOLLOW UP PRN (16:34)
[2020-09-16 16:39] LABS: Erythrocyte Sed Rate 35 mm/Hr (0-19)
[2020-09-16] MEDS ORDERED: Vancomycin 2000 MG X 1 dose, then per Pharmacy PROTOCOL IVPB ONE (17:00)
[2020-09-16 17:49] LABS: Total Iron Binding Capacity 293 mcg/dL (250-450); Transferrin 209 mg/dL (203-362)
[2020-09-16] MEDS: Furosemide 40 mg/4 ml IV VIAL IV SLOW PU SCH (18:00)
[2020-09-16] MEDS: HYDROcodone/ACETAMIN 5/325 mg TAB PO PRN (18:00)
[2020-09-16 18:07] LABS: Ferritin 351.1 ng/mL (24-336)
[2020-09-16 18:08] LABS: % Iron Saturation 7 % (15-55); Iron < 20 ug/dL (50-212); Unsaturated Iron Binding < 278 ug/dL
[2020-09-16] MEDS: metroNIDAZOLE IV 500 MG/100ML 500 MG/100 ML BAG IVPB SCH (18:31)
[2020-09-16 19:31] LABS: Urine Appearance Cloudy; Urine Bilirubin Negative (Negative); Urine Blood 1+ (Negative); Urine Color Yellow; Urine Glucose Negative (Negative); Urine Ketones Negative (Negative); Urine Nitrite Negative (Negative); Urine Protein 2+(100 mg/dL) (Negative); Urine Specific Gravity 1.014 (1.010-1.030); Urine Urobilinogen Negative (Negative)
[2020-09-16 19:33] LABS: Urine Bacteria Absent (Absent); Urine Red Blood Cell 1+(3-5/hpf) (Absent); Urine Squamous Epithelial Cell Present (Absent); Urine White Blood Cell Absent (Absent)
[2020-09-17] MEDS: HYDROcodone/ACETAMIN 5/325 mg TAB PO PRN ×3 (00:26→16:15)
[2020-09-17] MEDS: metroNIDAZOLE IV 500 MG/100ML 500 MG/100 ML BAG IVPB SCH ×3 (02:42→19:28)
[2020-09-17 05:19] LABS: INR 2.35 (0.82-1.09)
[2020-09-17 05:30] LABS: BUN/Creatinine Ratio 19.6 (8-20); EGFR African American 52.7 (>60); EGFR Non-African American 43.6 (>60); Magnesium 1.8 mg/dL (1.9-2.7); Potassium 3.8 mmol/L (3.5-5.0)
[2020-09-17 06:08] LABS: ABS Basophils 0.1 10^3/ul (0-0.2); ABS Eosinophils 0.1 10^3/ul (0-0.6); ABS Lymphocytes 1.3 10^3/ul (1.0-4.8); ABS Monocytes 1.4 10^3/ul (0-0.8); ABS Neutrophils 7.8 10^3/ul (1.5-7.7); Eosinophil % 0.7 %; Lymphocyte % 12.1 %; Nucleated Red Blood Cells % 0.1
[2020-09-17 07:29] LABS: Hematocrit 43 % (42-52); Hemoglobin 14.6 g/dL (14.0-18.0); Mean Corpuscular HGB Conc 34 g/dL (31-36); Mean Corpuscular Hemoglobin 30 pg (27-31); Mean Corpuscular Volume 88 fL (80-94); Mean Platelet Volume 8.7 fL (7.4-10.4); Platelet Count 155 10^3/uL (150-450); Red Blood Count 4.82 10^6 /uL (4.18-5.48); Red Cell Distribution Width 14 % (10-15); White Blood Count 10.7 10^3/uL (3.5-10.8)
[2020-09-17] MEDS: Furosemide 40 mg/4 ml IV VIAL IV SLOW PU SCH ×2 (08:52→16:15)
[2020-09-17] MEDS: Aspirin EC 81 mg TAB.EC (enteric coated) PO SCH (08:52)
[2020-09-17] MEDS: Metoprolol Succinate XL 200 mg TAB PO SCH (08:52)
[2020-09-17] MEDS ORDERED: Influenza VAC *QUAD* 2020-21* 0.5 ML SYRINGE IM ONE (09:00)
[2020-09-17] MEDS ORDERED: Magnesium Sulfate IV 3 GM in NS 0.9% 100 ml BAG 100 ML IVPB ONE (09:00)
[2020-09-17] MEDS: Docusate LIQ 100 MG/10 ML UDC PO SCH (11:52)
[2020-09-17] MEDS: Senna TAB 8.6 mg TAB PO SCH (11:53)
[2020-09-17] MEDS: CMC:Simvastatin 10 mg TAB (NF) PO SCH (11:53)
[2020-09-17] MEDS: Petrolatum 5 gm PACKET TOPICAL SCH ×2 (15:25→20:26)
[2020-09-17] MEDS ORDERED: cefTRIAXone 1 gm/50 mL NS BAG 1 GM/50 ML BAG IVPB SCH (16:00)
[2020-09-17] MEDS ORDERED: VANCOMYCIN 1500 MG IVPB SCH (18:00)
[2020-09-18] MEDS: HYDROcodone/ACETAMIN 5/325 mg TAB PO PRN ×3 (02:42→20:30)
[2020-09-18] MEDS: metroNIDAZOLE IV 500 MG/100ML 500 MG/100 ML BAG IVPB SCH (02:42)
[2020-09-18 06:40] LABS: BUN/Creatinine Ratio 22.5 (8-20); Calcium 8.5 mg/dL (8.6-10.3); EGFR African American 55.6 (>60); EGFR Non-African American 45.9 (>60); Potassium 3.6 mmol/L (3.5-5.0)
[2020-09-18] MEDS ORDERED: ceFAZolin VIAL 2 GM in NS 0.9% 100 ml BAG 100 ML IVPB SCH (08:00)
[2020-09-18] MEDS: Furosemide 40 mg/4 ml IV VIAL IV SLOW PU SCH ×2 (09:18→13:46)
[2020-09-18] MEDS: Aspirin EC 81 mg TAB.EC (enteric coated) PO SCH (09:19)
[2020-09-18] MEDS: Senna TAB 8.6 mg TAB PO SCH (09:19)
[2020-09-18] MEDS: Docusate LIQ 100 MG/10 ML UDC PO SCH ×2 (09:21→09:24)
[2020-09-18] MEDS: Petrolatum 5 gm PACKET TOPICAL SCH ×2 (09:22→20:24)
[2020-09-18] MEDS: Metoprolol Succinate XL 200 mg TAB PO SCH (09:22)
[2020-09-18] MEDS: CMC:Simvastatin 10 mg TAB (NF) PO SCH (09:23)
[2020-09-18] MEDS: ceFAZolin 2 GM PREMIX 2 GM/50 ML BAG IVPB SCH ×2 (09:25→16:36)
[2020-09-18 21:17] LABS: C Reactive Protein 174.24 mg/L (<8.01)
[2020-09-19] MEDS: ceFAZolin 2 GM PREMIX 2 GM/50 ML BAG IVPB SCH ×4 (01:06→23:51)
[2020-09-19] MEDS: Furosemide 40 mg/4 ml IV VIAL IV SLOW PU SCH ×2 (05:52→13:19)
[2020-09-19] MEDS: HYDROcodone/ACETAMIN 5/325 mg TAB PO PRN ×3 (05:58→20:14)
[2020-09-19 06:53] LABS: BUN/Creatinine Ratio 20.3 (8-20); Calcium 8.9 mg/dL (8.6-10.3); EGFR African American 59.2 (>60); EGFR Non-African American 48.9 (>60); Potassium 4.1 mmol/L (3.5-5.0)
[2020-09-19] MEDS: Aspirin EC 81 mg TAB.EC (enteric coated) PO SCH (09:23)
[2020-09-19] MEDS: Senna TAB 8.6 mg TAB PO SCH (09:23)
[2020-09-19] MEDS: CMC:Simvastatin 10 mg TAB (NF) PO SCH (09:23)
[2020-09-19] MEDS: Petrolatum 5 gm PACKET TOPICAL SCH ×2 (09:23→20:26)
[2020-09-19] MEDS: Docusate LIQ 100 MG/10 ML UDC PO SCH ×2 (09:24→09:31)
[2020-09-19] MEDS: Metoprolol Succinate XL 200 mg TAB PO SCH (09:25)
[2020-09-19] MEDS ORDERED: Vancomycin Trough Check NOTE FOLLOW UP ONE (17:30)
[2020-09-19] MEDS ORDERED: Dextrose 50% Syringe 50 ml 25 GM/50 ML SYRINGE IV PUSH PRN (22:05)
[2020-09-20] MEDS: Furosemide 40 mg/4 ml IV VIAL IV SLOW PU SCH ×2 (05:07→13:14)
[2020-09-20] MEDS: ceFAZolin 2 GM PREMIX 2 GM/50 ML BAG IVPB SCH ×2 (10:00→16:33)
[2020-09-20] MEDS: HYDROcodone/ACETAMIN 5/325 mg TAB PO PRN ×3 (10:00→23:50)
[2020-09-20] MEDS: Senna TAB 8.6 mg TAB PO SCH (10:02)
[2020-09-20] MEDS: CMC:Simvastatin 10 mg TAB (NF) PO SCH (10:02)
[2020-09-20] MEDS: Aspirin EC 81 mg TAB.EC (enteric coated) PO SCH (10:02)
[2020-09-20] MEDS: Metoprolol Succinate XL 200 mg TAB PO SCH (10:03)
[2020-09-20] MEDS: Docusate LIQ 100 MG/10 ML UDC PO SCH ×2 (10:03→10:07)
[2020-09-20 12:25] LABS: BUN/Creatinine Ratio 16.3 (8-20); Calcium 8.6 mg/dL (8.6-10.3); EGFR African American 63.2 (>60); EGFR Non-African American 52.2 (>60)
[2020-09-20] MEDS: Petrolatum 5 gm PACKET TOPICAL SCH ×2 (13:18→22:27)
[2020-09-21 05:29] LABS: BUN/Creatinine Ratio 19.4 (8-20); Calcium 8.7 mg/dL (8.6-10.3); EGFR African American 66.6 (>60); EGFR Non-African American 55.1 (>60); Magnesium 2.1 mg/dL (1.9-2.7)
[2020-09-21] MEDS: Furosemide 40 mg/4 ml IV VIAL IV SLOW PU SCH ×2 (05:42→12:57)
[2020-09-21] MEDS: Senna TAB 8.6 mg TAB PO SCH (08:37)
[2020-09-21] MEDS: Aspirin EC 81 mg TAB.EC (enteric coated) PO SCH (08:37)
[2020-09-21] MEDS: Metoprolol Succinate XL 200 mg TAB PO SCH (08:37)
[2020-09-21] MEDS: Docusate LIQ 100 MG/10 ML UDC PO SCH (08:38)
[2020-09-21] MEDS: CMC:Simvastatin 10 mg TAB (NF) PO SCH (08:39)
[2020-09-21] MEDS: HYDROcodone/ACETAMIN 5/325 mg TAB PO PRN ×2 (08:45→17:35)
[2020-09-21] MEDS: Petrolatum 5 gm PACKET TOPICAL SCH ×2 (11:15→22:59)
[2020-09-22] MEDS: HYDROcodone/ACETAMIN 5/325 mg TAB PO PRN ×3 (04:43→18:19)
[2020-09-22] MEDS: Furosemide 40 mg/4 ml IV VIAL IV SLOW PU SCH ×2 (05:19→13:42)
[2020-09-22 08:50] LABS: ABS Basophils 0.1 10^3/ul (0-0.2); ABS Eosinophils 0.3 10^3/ul (0-0.6); ABS Lymphocytes 1.4 10^3/ul (1.0-4.8); ABS Monocytes 1.1 10^3/ul (0-0.8); ABS Neutrophils 4.7 10^3/ul (1.5-7.7); Eosinophil % 4.1 %; Hematocrit 46 % (42-52); Hemoglobin 15.3 g/dL (14.0-18.0); Lymphocyte % 18.8 %; Mean Corpuscular HGB Conc 34 g/dL (31-36); Mean Corpuscular Hemoglobin 30 pg (27-31); Mean Corpuscular Volume 89 fL (80-94); Mean Platelet Volume 8.3 fL (7.4-10.4); Nucleated Red Blood Cells % 0.1; Platelet Count 251 10^3/uL (150-450); Red Blood Count 5.11 10^6 /uL (4.18-5.48); Red Cell Distribution Width 14 % (10-15); White Blood Count 7.7 10^3/uL (3.5-10.8)
[2020-09-22 08:53] LABS: Calcium 8.9 mg/dL (8.6-10.3); Potassium 4.2 mmol/L (3.5-5.0)
[2020-09-22 08:59] LABS: BUN/Creatinine Ratio 20.1 (8-20); EGFR African American 63.8 (>60); EGFR Non-African American 52.7 (>60)
[2020-09-22] MEDS: CMC:Simvastatin 10 mg TAB (NF) PO SCH (09:30)
[2020-09-22] MEDS: Metoprolol Succinate XL 200 mg TAB PO SCH (09:32)
[2020-09-22] MEDS: Aspirin EC 81 mg TAB.EC (enteric coated) PO SCH (09:32)
[2020-09-22] MEDS: Senna TAB 8.6 mg TAB PO SCH (09:33)
[2020-09-22] MEDS: Docusate LIQ 100 MG/10 ML UDC PO SCH (09:34)
[2020-09-22] MEDS: Petrolatum 5 gm PACKET TOPICAL SCH ×2 (13:41→22:14)
[2020-09-23 07:07] LABS: Hematocrit 43 % (42-52); Hemoglobin 14.3 g/dL (14.0-18.0); Mean Corpuscular HGB Conc 33 g/dL (31-36); Mean Corpuscular Hemoglobin 30 pg (27-31); Mean Corpuscular Volume 90 fL (80-94); Mean Platelet Volume 8.7 fL (7.4-10.4); Platelet Count 267 10^3/uL (150-450); Red Blood Count 4.77 10^6 /uL (4.18-5.48); Red Cell Distribution Width 14 % (10-15); White Blood Count 7.5 10^3/uL (3.5-10.8)
[2020-09-23 07:21] LABS: INR 1.38 (0.82-1.09)
[2020-09-23 07:23] LABS: BUN/Creatinine Ratio 21.3 (8-20); Calcium 8.7 mg/dL (8.6-10.3); EGFR African American 67.8 (>60); EGFR Non-African American 56.1 (>60); Potassium 4.1 mmol/L (3.5-5.0)
[2020-09-23 07:36] LABS: ABS Basophils 0.6 10^3/ul (0-0.2); ABS Eosinophils 0.3 10^3/ul (0-0.6); ABS Lymphocytes 1.3 10^3/ul (1.0-4.8); ABS Monocytes 1.1 10^3/ul (0-0.8); ABS Neutrophils 4.2 10^3/ul (1.5-7.7); Lymphocyte % 16.7 %
[2020-09-23] MEDS: Aspirin EC 81 mg TAB.EC (enteric coated) PO SCH (08:24)
[2020-09-23] MEDS: HYDROcodone/ACETAMIN 5/325 mg TAB PO PRN ×2 (08:25→14:52)
[2020-09-23] MEDS: Senna TAB 8.6 mg TAB PO SCH (08:26)
[2020-09-23] MEDS: Metoprolol Succinate XL 200 mg TAB PO SCH (08:27)
[2020-09-23] MEDS: Docusate LIQ 100 MG/10 ML UDC PO SCH (08:29)
[2020-09-23] MEDS: Petrolatum 5 gm PACKET TOPICAL SCH ×2 (08:30→20:40)
[2020-09-23] MEDS: CMC:Simvastatin 10 mg TAB (NF) PO SCH (08:31)
[2020-09-24 07:52] LABS: BUN/Creatinine Ratio 19.9 (8-20); EGFR African American 60.1 (>60); EGFR Non-African American 49.7 (>60); Potassium 4.4 mmol/L (3.5-5.0)
[2020-09-24] MEDS: Senna TAB 8.6 mg TAB PO SCH (08:18)
[2020-09-24] MEDS: CMC:Simvastatin 10 mg TAB (NF) PO SCH (08:18)
[2020-09-24] MEDS: Metoprolol Succinate XL 200 mg TAB PO SCH (08:18)
[2020-09-24] MEDS: Aspirin EC 81 mg TAB.EC (enteric coated) PO SCH (08:19)
[2020-09-24] MEDS: Docusate LIQ 100 MG/10 ML UDC PO SCH (08:19)
[2020-09-24] MEDS: Petrolatum 5 gm PACKET TOPICAL SCH (08:24)
[2020-09-24 11:27] VITALS: BP 101/70
== END 2020-09-24 12:00 | DRG 871 ==
LOC: ED 13:46 → MEDTELE 17:03
PROVIDERS: ADMIT Internal Medicine; ATTEND Internal Medicine

== ENCOUNTER 2022-09-20 17:55 | Inpatient (IN) ==
[2022-09-20] MEDS ORDERED: cefTRIAXone 1 gm/50 mL D5W 1 GM/50 ML BAG IV ONE (18:09)
[2022-09-20 19:22] LABS: CO2 Carbon Dioxide 24 mmol/L (22-32); Calcium 8.8 mg/dL (8.6-10.3); Chloride 103 mmol/L (101-111); Sodium 136 mmol/L (135-145)
[2022-09-20 19:25] LABS: Anion Gap 9 mmol/L (2-11)
[2022-09-20 19:28] LABS: Blood Urea Nitrogen 47 mg/dL (6-24); Creatinine, Serum 2.41 mg/dL (0.67-1.17); Glucose 117 mg/dL (70-100); eGFR CKD-EPI 27.8 (>60)
[2022-09-20] MEDS ORDERED: Lactated Ringers 1000 ml BAG 1,000 ML IV ONE (19:42)
[2022-09-20 20:12] LABS: ABS Lymphocytes 1.3 10^3/ul (1.0-4.8); ABS Monocytes 1.5 10^3/ul (0-0.8); ABS Neutrophils 6.8 10^3/ul (1.5-7.7); Eosinophil % 0.2 %; Hematocrit 38 % (42-52); Hemoglobin 12.4 g/dL (14.0-18.0); Lymphocyte % 13.6 %; Mean Corpuscular HGB Conc 32 g/dL (31-36); Mean Corpuscular Hemoglobin 29 pg (27-31); Mean Corpuscular Volume 91 fL (80-94); Mean Platelet Volume 8.4 fL (7.4-10.4); Platelet Count 148 10^3/uL (150-450); Red Blood Count 4.22 10^6 /uL (4.18-5.48); Red Cell Distribution Width 14 % (10-15); White Blood Count 9.7 10^3/uL (3.5-10.8)
[2022-09-20 20:18] LABS: INR 3.28 (0.88-1.18)
[2022-09-20 20:45] LABS: Potassium Redraw 3.6 mmol/L (3.5-5.0)
[2022-09-20] MEDS ORDERED: Piperacillin/Tazobac ADVAN 3.375 GM in NS 0.9% 100 ml BAG 100 ML IV ONE (21:26)
[2022-09-20] MEDS ORDERED: Vancomycin 1,000 MG in NS 0.9% 250 ml 250 ML IVPB ONE (21:32)
[2022-09-20 21:56] LABS: Magnesium 1.8 mg/dL (1.9-2.7)
[2022-09-20] MEDS ORDERED: Vancomycin per Pharmacy 1 EA NOTE FOLLOW UP SCH (22:00)
[2022-09-20] MEDS ORDERED: Zosyn per Pharmacy NOTE FOLLOW UP SCH (22:00)
[2022-09-20] MEDS ORDERED: Vancomycin 1500 MG IV - x ONCE IVPB ONE (22:00)
[2022-09-20] MEDS ORDERED: HYDROcodone/ACETAMIN 5/325 mg TAB PO PRN (22:08)
[2022-09-20] MEDS ORDERED: Albuterol HFA INHALER 8 gm MDI INH PRN (22:08)
[2022-09-20] MEDS ORDERED: Potassium Chlor 20 meq TAB.ER PO ONE (22:59)
[2022-09-21] MEDS ORDERED: Ondansetron 4 mg VIAL 2 MG/ML 2 ml VIAL IV PRN
[2022-09-21] MEDS ORDERED: Nicotine GUM 4MG FRUIT FLAVOR PO PRN (00:23)
[2022-09-21] MEDS ORDERED: Dextrose 50% Syringe 50 ml 25 GM/50 ML SYRINGE IV PUSH PRN (00:24)
[2022-09-21] MEDS ORDERED: Phytonadione SUBCUT/IM Adult 10 MG/ML AMP (IM or SQ not preferred route) IM ONE (01:38)
[2022-09-21] MEDS ORDERED: Phytonadione IV (Adult) 10 MG in NS 0.9% 50 ML 50 ML IV ONE (01:49)
[2022-09-21] MEDS ORDERED: ZOSYN 3.375 GM Q8H per EXTENDED INFUSION IV SCH ×2 (02:00)
[2022-09-21] MEDS ORDERED: Ondansetron 4 mg VIAL 2 MG/ML 2 ml VIAL ONE (02:11)
[2022-09-21] MEDS ORDERED: Acetaminophen IV 1 GM/100ML 1,000 MG/100 ML BAG IV ONE (02:11)
[2022-09-21] MEDS ORDERED: Metoclopramide 5 MG/ML VIAL (10 mg) ONE (02:11)
[2022-09-21] MEDS ORDERED: Propofol 10 MG/ML 20 ML BTL ONE (02:11)
[2022-09-21] MEDS ORDERED: Morphine 10 MG/ML VIAL (1 ml) ONE (02:13)
[2022-09-21] MEDS ORDERED: fentaNYL 100 mcg/2 ml 50 MCG/ML VIAL ONE (02:13)
[2022-09-21] MEDS ORDERED: Morphine 4 MG/ML VIAL (1 ml) IV PRN ×2 (03:08→03:20)
[2022-09-21] MEDS ORDERED: Prochlorperazine 5 mg/ml 2 ml VIAL (10 mg) IV PRN ×2 (03:08→03:20)
[2022-09-21] MEDS ORDERED: fentaNYL 100 mcg/2 ml 50 MCG/ML VIAL IV PRN ×2 (03:08→03:20)
[2022-09-21] MEDS ORDERED: Naloxone 0.4 mg VIAL 0.4 mg/ml 1 ml VIAL IV PRN ×2 (03:08→03:22)
[2022-09-21] MEDS ORDERED: Lidocaine 1.5% EPI 1:200,000 30 ML SDV ONE (03:21)
[2022-09-21] MEDS ORDERED: Vancomycin Random Level NOTE FOLLOW UP ONE (06:00)
[2022-09-21 07:39] LABS: Hematocrit 35 % (42-52); Hemoglobin 11.6 g/dL (14.0-18.0); Mean Corpuscular HGB Conc 34 g/dL (31-36); Mean Corpuscular Hemoglobin 30 pg (27-31); Mean Corpuscular Volume 90 fL (80-94); Mean Platelet Volume 8.8 fL (7.4-10.4); Platelet Count 135 10^3/uL (150-450); Red Blood Count 3.85 10^6 /uL (4.18-5.48); Red Cell Distribution Width 14 % (10-15)
[2022-09-21 07:46] LABS: INR 2.51 (0.88-1.18)
[2022-09-21 08:36] LABS: Albumin 3.2 g/dL (3.2-5.2); Albumin/Globulin Ratio 1.5 (1-3); Calcium 8.4 mg/dL (8.6-10.3); Creatinine, Serum 2.38 mg/dL (0.67-1.17); Globulin 2.1 g/dL (2-4); Magnesium 1.7 mg/dL (1.9-2.7); Potassium 4.1 mmol/L (3.5-5.0); Total Bilirubin 1.9 mg/dL (0.2-1.0); Total Protein 5.3 g/dL (6.4-8.9); eGFR CKD-EPI 28.2 (>60)
[2022-09-21] MEDS: Nicotine PATCH 14 MG/24 HR PATCH TRANSDERM SCH (08:46)
[2022-09-21] MEDS: ZOSYN 3.375 GM Q8H per EXTENDED INFUSION IV SCH ×2 (08:52→16:12)
[2022-09-21] MEDS: HYDROcodone/ACETAMIN 5/325 mg TAB PO PRN ×3 (08:55→21:15)
[2022-09-21 09:10] LABS: ABS Lymphocytes 0.8 10^3/ul (1.0-4.8); ABS Monocytes 1.5 10^3/ul (0-0.8); ABS Neutrophils 6.7 10^3/ul (1.5-7.7); Eosinophil % 0.1 %; Lymphocyte % 8.9 %; RBC Morphology Normal (Normal)
[2022-09-21] MEDS: CMCS: Simvastatin 10 mg TAB (NF) PO SCH (10:17)
[2022-09-21] MEDS: Fluticasone NASAL SPRAY 50MCG 16 gm SPRAY BTL BOTH NARES SCH ×2 (10:18→21:28)
[2022-09-21] MEDS ORDERED: Magnesium Sulfate 2 gm BAG 2 GM/50 ML BAG IVPB ONE (14:18)
[2022-09-21 14:36] LABS: Hematocrit 34 % (42-52); Hemoglobin 11.1 g/dL (14.0-18.0)
[2022-09-21] MEDS ORDERED: Warfarin per PHARMACY **NOTE FOLLOW UP SCH (15:00)
[2022-09-22] MEDS: ZOSYN 3.375 GM Q8H per EXTENDED INFUSION IV SCH ×2 (01:06→11:44)
[2022-09-22 06:41] LABS: Hematocrit 34 % (42-52); Hemoglobin 11.2 g/dL (14.0-18.0); Mean Corpuscular HGB Conc 33 g/dL (31-36); Mean Corpuscular Hemoglobin 30 pg (27-31); Mean Corpuscular Volume 90 fL (80-94); Mean Platelet Volume 9.4 fL (7.4-10.4); Platelet Count 140 10^3/uL (150-450); Red Blood Count 3.78 10^6 /uL (4.18-5.48); Red Cell Distribution Width 14 % (10-15); White Blood Count 8.5 10^3/uL (3.5-10.8)
[2022-09-22 06:48] LABS: INR 1.52 (0.88-1.18)
[2022-09-22 06:59] LABS: Calcium 8.3 mg/dL (8.6-10.3); Creatinine, Serum 2.34 mg/dL (0.67-1.17); Potassium 4.2 mmol/L (3.5-5.0); eGFR CKD-EPI 28.8 (>60)
[2022-09-22 08:36] LABS: ABS Eosinophils 0.1 10^3/ul (0-0.6); ABS Lymphocytes 1.2 10^3/ul (1.0-4.8); ABS Monocytes 1.4 10^3/ul (0-0.8); ABS Neutrophils 5.8 10^3/ul (1.5-7.7); Eosinophil % 0.9 %; Lymphocyte % 14.5 %; RBC Morphology Normal (Normal)
[2022-09-22] MEDS: HYDROcodone/ACETAMIN 5/325 mg TAB PO PRN ×2 (11:37→16:56)
[2022-09-22] MEDS: Fluticasone NASAL SPRAY 50MCG 16 gm SPRAY BTL BOTH NARES SCH ×2 (11:38→22:40)
[2022-09-22] MEDS: Nicotine PATCH 14 MG/24 HR PATCH TRANSDERM SCH ×2 (11:38→11:44)
[2022-09-22] MEDS: CMCS: Simvastatin 10 mg TAB (NF) PO SCH (13:42)
[2022-09-22] MEDS ORDERED: Warfarin DAILY REMINDER **NOTE FOLLOW UP SCH (17:00)
[2022-09-22] MEDS: ceFAZolin 2 GM in NS PREMIX 2 GM/100 ML BAG IVPB SCH (20:37)
[2022-09-23] MEDS: ceFAZolin 2 GM in NS PREMIX 2 GM/100 ML BAG IVPB SCH ×2 (04:18→11:54)
[2022-09-23 07:10] LABS: INR 1.75 (0.88-1.18)
[2022-09-23 07:14] LABS: Hematocrit 32 % (42-52); Hemoglobin 10.6 g/dL (14.0-18.0); Mean Corpuscular HGB Conc 33 g/dL (31-36); Mean Corpuscular Hemoglobin 29 pg (27-31); Mean Corpuscular Volume 90 fL (80-94); Platelet Count 152 10^3/uL (150-450); Red Cell Distribution Width 14 % (10-15); White Blood Count 6.5 10^3/uL (3.5-10.8)
[2022-09-23 07:46] LABS: Calcium 8.2 mg/dL (8.6-10.3); Creatinine, Serum 2.08 mg/dL (0.67-1.17); Potassium 4.5 mmol/L (3.5-5.0); eGFR CKD-EPI 33.2 (>60)
[2022-09-23] MEDS: Nicotine PATCH 14 MG/24 HR PATCH TRANSDERM SCH (08:28)
[2022-09-23] MEDS: HYDROcodone/ACETAMIN 5/325 mg TAB PO PRN (08:29)
[2022-09-23] MEDS: Fluticasone NASAL SPRAY 50MCG 16 gm SPRAY BTL BOTH NARES SCH (08:36)
[2022-09-23 11:18] VITALS: BP 112/72
[2022-09-23] MEDS: CMCS: Simvastatin 10 mg TAB (NF) PO SCH (11:29)
[2022-09-23 11:54] LABS: Rapid COVID-19 Molecular Undetected (Undetected)
== END 2022-09-23 14:45 | DRG 580 ==
LOC: ED 17:55 → EDHOLD 17:55 → MED 21:13 → EDHOLD 09-21 02:57 → MED 09-21 03:18 → OR 09-21 03:18 → OBSVTOIN 09-21 06:17 → SUATTDRO 09-21 06:17 → INTOOBSV 09-21 06:17 → MEDTELE 09-21 19:41 → MED 09-23 00:37
PROVIDERS: ADMIT Hospitalist; ATTEND Internal Medicine

== ENCOUNTER 2022-12-16 12:55 | Inpatient (IN) ==
[2022-12-16 15:42] LABS: ABS Basophils 0.1 10^3/uL (0.0-0.1); ABS Lymphocytes 0.6 10^3/uL (1.0-4.8); ABS Monocytes 0.9 10^3/uL (0.0-1.1); ABS Neutrophils 11.1 10^3/uL (1.5-7.6); ABS Nucleated RBC 0.01 10^3/ul; Hematocrit 28.2 % (38-53); Hemoglobin 9.3 g/dL (13.2-16.3); Lymphocyte % 4.5 %; Mean Corpuscular Hemoglobin 28.2 pg (27-33); Mean Corpuscular Hgb Conc 32.9 g/dL (31-36); Mean Corpuscular Volume 85.8 fL (80-97); Mean Platelet Volume 7.1 fL (7.5-11.2); Nucleated Red Blood Cells % 0.1 /100 WBC (0.0-0.4); Platelet Count 298 10^3/uL (150-450); Red Blood Count 3.29 10^6/uL (4.06-5.63); Red Cell Distribution Width 19.2 % (12-17); White Blood Count 12.7 10^3/uL (3.6-10.2)
[2022-12-16 15:50] LABS: Activated Partial Thrombo Time 32.7 seconds (26.0-38.0); INR 1.8 (0.88-1.18)
[2022-12-16 16:31] LABS: Albumin 3.1 g/dL (3.2-5.2); Albumin/Globulin Ratio 1.1 (1-3); Calcium 8.8 mg/dL (8.6-10.3); Creatinine, Serum 3.73 mg/dL (0.67-1.17); Globulin 2.9 g/dL (2-4); Magnesium 1.1 mg/dL (1.9-2.7); Total Bilirubin 0.7 mg/dL (0.2-1.0); eGFR CKD-EPI 16.5 (>60)
[2022-12-16 16:45] LABS: TSH Ultra Thyroid Stim Horm 1.6 mcIU/mL (0.34-5.60)
[2022-12-16] MEDS ORDERED: Magnesium Sulfate 2 gm BAG 2 GM/50 ML BAG IVPB ONE (16:57)
[2022-12-16] MEDS ORDERED: NS 0.9% 500 ml BAG 500 ML IV ONE (16:58)
[2022-12-16] MEDS ORDERED: Magnesium Sulf 4 GM/100 ML IV 4,000 MG/100 ML BAG IVPB ONE (18:27)
[2022-12-16 18:50] LABS: C Reactive Protein 180.8 mg/L (<8.01)
[2022-12-16] MEDS ORDERED: Albuterol HFA INHALER 8 gm MDI INH PRN (19:27)
[2022-12-16] MEDS ORDERED: Vancomycin 1,000 MG in NS 0.9% 250 ml 250 ML IVPB ONE (19:41)
[2022-12-16] MEDS ORDERED: Piperacillin/Tazobac ADVAN 2.25 GM in NS 0.9% 100 ml BAG 100 ML IV ONE (19:42)
[2022-12-16] MEDS ORDERED: Dextrose 50% Syringe 50 ml 25 GM/50 ML SYRINGE IV PUSH PRN (19:47)
[2022-12-16] MEDS ORDERED: Vancomycin per Pharmacy 1 EA NOTE FOLLOW UP SCH (20:00)
[2022-12-16] MEDS ORDERED: Zosyn per Pharmacy NOTE FOLLOW UP SCH (20:00)
[2022-12-16] MEDS: Insulin GLARGINE 100 un/ml 10 ml VIAL SUBCUT SCH (21:58)
[2022-12-16] MEDS: Cefepime 1 GM in Dextrose 1 GM/50 ML BAG IV SCH (21:59)
[2022-12-17] MEDS: HYDROcodone/ACETAMIN 5/325 mg TAB PO PRN (02:42)
[2022-12-17] MEDS: Metoprolol Tartrate 5 mg VIAL 5 ml VIAL (1 mg/ml) IV PRN ×3 (03:24→05:15)
[2022-12-17 03:37] LABS: ABS Lymphocytes 0.4 10^3/uL (1.0-4.8); ABS Monocytes 1.2 10^3/uL (0.0-1.1); ABS Neutrophils 10.6 10^3/uL (1.5-7.6); ABS Nucleated RBC 0.01 10^3/ul; Eosinophil % 0.1 %; Hemoglobin 8.4 g/dL (13.2-16.3); Lymphocyte % 3.4 %; Mean Corpuscular Hemoglobin 29.1 pg (27-33); Mean Corpuscular Hgb Conc 33.8 g/dL (31-36); Mean Corpuscular Volume 86.2 fL (80-97); Mean Platelet Volume 7.1 fL (7.5-11.2); Platelet Count 269 10^3/uL (150-450); Red Cell Distribution Width 18.9 % (12-17); White Blood Count 12.3 10^3/uL (3.6-10.2)
[2022-12-17 04:04] LABS: Calcium 8.7 mg/dL (8.6-10.3); Creatinine, Serum 3.71 mg/dL (0.67-1.17); Magnesium 1.9 mg/dL (1.9-2.7); Potassium 4.7 mmol/L (3.5-5.0); Vancomycin Random 10.8 mcg/mL; eGFR CKD-EPI 16.6 (>60)
[2022-12-17 05:38] LABS: Urine Appearance Cloudy; Urine Bilirubin Negative (Negative); Urine Blood 1+ (Negative); Urine Color Yellow; Urine Glucose Negative (Negative); Urine Ketones Negative (Negative); Urine Nitrite Positive (Negative); Urine Protein 1+(30 mg/dL) (Negative); Urine Specific Gravity 1.009 (1.002-1.030); Urine Urobilinogen Negative (Negative)
[2022-12-17 05:43] LABS: Urine Bacteria 2+ (Absent); Urine Red Blood Cell 1+(3-5/hpf) (Absent); Urine Squamous Epithelial Cell Present (Absent); Urine White Blood Cell 3+(>20/hpf) (Absent)
[2022-12-17] MEDS ORDERED: Vancomycin Random Level NOTE FOLLOW UP ONE (06:00)
[2022-12-17] MEDS: Fluticasone NASAL SPRAY 50MCG 16 gm SPRAY BTL BOTH NARES SCH ×3 (07:31→23:49)
[2022-12-17] MEDS ORDERED: Metoprolol Tartrate 5 mg VIAL 5 ml VIAL (1 mg/ml) IV ONE (08:19)
[2022-12-17] MEDS: Cefepime 1 GM in Dextrose 1 GM/50 ML BAG IV SCH ×2 (08:41→22:56)
[2022-12-17] MEDS ORDERED: Lactated Ringers 1000 ml BAG 1,000 ML IV SCH (09:00)
[2022-12-17] MEDS ORDERED: Furosemide 40 mg/4 ml IV VIAL IV SLOW PU ONE (11:24)
[2022-12-17] MEDS ORDERED: Furosemide 40 mg/4 ml IV VIAL ONE (11:24)
[2022-12-17 14:50] LABS: High Sensitivity Troponin 1 Hr 23 pg/mL (<20)
[2022-12-17] MEDS ORDERED: Vancomycin 1,250 MG in NS 0.9% 250 ml 250 ML IVPB ONE (15:00)
[2022-12-17] MEDS ORDERED: Sulfur Hexaflouride MICROSPHR 25 MG VIAL ONE (15:44)
[2022-12-17] MEDS ORDERED: Furosemide 40 mg/4 ml IV VIAL IV SLOW PU SCH (17:00)
[2022-12-17] MEDS: Collagenase 250 units/gm OINT 1 tube TOPICAL SCH (19:39)
[2022-12-17 21:50] LABS: Urine Appearance Turbid; Urine Bilirubin Negative (Negative); Urine Blood 2+ (Negative); Urine Color Yellow; Urine Glucose Negative (Negative); Urine Ketones Negative (Negative); Urine Nitrite Negative (Negative); Urine Protein 1+(30 mg/dL) (Negative); Urine Specific Gravity 1.005 (1.002-1.030); Urine Urobilinogen Negative (Negative)
[2022-12-17 22:14] LABS: Urine Bacteria 1+ (Absent); Urine Red Blood Cell 3+(>10/hpf) (Absent); Urine White Blood Cell 3+(>20/hpf) (Absent)
[2022-12-17] MEDS: Insulin GLARGINE 100 un/ml 10 ml VIAL SUBCUT SCH (22:35)
[2022-12-18 00:25] LABS: Calcium 8.3 mg/dL (8.6-10.3); Creatinine, Serum 3.83 mg/dL (0.67-1.17); Potassium 4.4 mmol/L (3.5-5.0)
[2022-12-18 04:34] LABS: ABS Lymphocytes 0.4 10^3/uL (1.0-4.8); ABS Monocytes 0.8 10^3/uL (0.0-1.1); ABS Neutrophils 6.4 10^3/uL (1.5-7.6); Eosinophil % 0.3 %; Hematocrit 23.6 % (38-53); Hemoglobin 8.1 g/dL (13.2-16.3); Lymphocyte % 5.7 %; Mean Corpuscular Hemoglobin 29.3 pg (27-33); Mean Corpuscular Hgb Conc 34.1 g/dL (31-36); Mean Corpuscular Volume 85.9 fL (80-97); Mean Platelet Volume 7.4 fL (7.5-11.2); Platelet Count 238 10^3/uL (150-450); Red Blood Count 2.75 10^6/uL (4.06-5.63); Red Cell Distribution Width 18.6 % (12-17); White Blood Count 7.6 10^3/uL (3.6-10.2)
[2022-12-18 05:07] LABS: Calcium 8.4 mg/dL (8.6-10.3); Creatinine, Serum 3.83 mg/dL (0.67-1.17); Magnesium 1.8 mg/dL (1.9-2.7); Phosphorus 4.2 mg/dL (2.5-5.0); Potassium 4.4 mmol/L (3.5-5.0); Vancomycin Random 17.1 mcg/mL
[2022-12-18] MEDS ORDERED: Vancomycin Random Level NOTE FOLLOW UP ONE (06:00)
[2022-12-18] MEDS ORDERED: Metoprolol Tartrate 5 mg VIAL 5 ml VIAL (1 mg/ml) IV ONE (07:02)
[2022-12-18] MEDS: Metoprolol Succinate XL 200 mg TAB PO SCH (08:50)
[2022-12-18] MEDS: Fluticasone NASAL SPRAY 50MCG 16 gm SPRAY BTL BOTH NARES SCH ×2 (08:51→20:56)
[2022-12-18] MEDS: Cefepime 1 GM in Dextrose 1 GM/50 ML BAG IV SCH (09:49)
[2022-12-18] MEDS: HYDROcodone/ACETAMIN 5/325 mg TAB PO PRN ×2 (09:54→15:51)
[2022-12-18] MEDS ORDERED: Digoxin IV 0.5 MG/2 ML AMP (0.25 MG/ML) IV SLOW PU ONE ×2 (10:30→18:36)
[2022-12-18] MEDS ORDERED: Digoxin IV 0.5 MG/2 ML AMP (0.25 MG/ML) ONE (11:49)
[2022-12-18] MEDS: Collagenase 250 units/gm OINT 1 tube TOPICAL SCH (11:52)
[2022-12-18] MEDS ORDERED: Nicotine GUM 4MG FRUIT FLAVOR PO PRN (14:51)
[2022-12-18] MEDS: Nicotine PATCH 14 MG/24 HR PATCH TRANSDERM SCH (15:59)
[2022-12-18] MEDS: cefTRIAXone 1 gm/50 mL D5W 1 GM/50 ML BAG IV SCH (16:13)
[2022-12-18] MEDS: Insulin GLARGINE 100 un/ml 10 ml VIAL SUBCUT SCH (20:51)
[2022-12-19 04:27] LABS: Hemoglobin 8.5 g/dL (13.2-16.3); Mean Corpuscular Hemoglobin 28.8 pg (27-33); Mean Corpuscular Hgb Conc 34.1 g/dL (31-36); Mean Corpuscular Volume 84.5 fL (80-97); Mean Platelet Volume 7.3 fL (7.5-11.2); Platelet Count 236 10^3/uL (150-450); Red Blood Count 2.96 10^6/uL (4.06-5.63); Red Cell Distribution Width 18.4 % (12-17); White Blood Count 9.3 10^3/uL (3.6-10.2)
[2022-12-19 05:02] LABS: Anion Gap 7 mmol/L (2-16); Blood Urea Nitrogen 62 mg/dL (6-24); CO2 Carbon Dioxide 21 mmol/L (22-32); Calcium 8.2 mg/dL (8.6-10.3); Chloride 110 mmol/L (101-111); Creatinine, Serum 3.06 mg/dL (0.67-1.17); Glucose 101 mg/dL (70-100); Magnesium 1.5 mg/dL (1.9-2.7); Phosphorus 2.7 mg/dL (2.5-5.0); Potassium 4.3 mmol/L (3.5-5.0); Sodium 138 mmol/L (135-145); Vancomycin Random 13.9 mcg/mL; eGFR CKD-EPI 20.9 (>60)
[2022-12-19] MEDS ORDERED: Magnesium Sulfate 2 gm BAG 2 GM/50 ML BAG IVPB ONE (05:15)
[2022-12-19 05:27] LABS: Anisocytosis 1+; Polychromasia 1+
[2022-12-19 05:28] LABS: ABS Eosinophils 0.1 10^3/uL (0.0-0.5); ABS Lymphocytes 0.6 10^3/uL (1.0-4.8); ABS Neutrophils 7.7 10^3/uL (1.5-7.6); Eosinophil % 0.8 %; Lymphocyte % 6.8 %
[2022-12-19] MEDS ORDERED: Vancomycin Random Level NOTE FOLLOW UP ONE (06:00)
[2022-12-19] MEDS: Nicotine PATCH 14 MG/24 HR PATCH TRANSDERM SCH (09:24)
[2022-12-19] MEDS: Metoprolol Succinate XL 200 mg TAB PO SCH (09:27)
[2022-12-19] MEDS: Collagenase 250 units/gm OINT 1 tube TOPICAL SCH (09:32)
[2022-12-19] MEDS: Fluticasone NASAL SPRAY 50MCG 16 gm SPRAY BTL BOTH NARES SCH ×2 (09:32→21:05)
[2022-12-19 10:41] LABS: % Iron Saturation 13 % (15-55); .Transferrin 112 mg/dL (203-362); Iron < 20 ug/dL (50-212); Total Iron Binding Capacity 157 mcg/dL (250-450); Unsaturated Iron Binding 137 ug/dL
[2022-12-19 11:02] LABS: Ferritin 188.6 ng/mL (24-336)
[2022-12-19] MEDS: HYDROcodone/ACETAMIN 5/325 mg TAB PO PRN ×2 (12:13→17:16)
[2022-12-19] MEDS: cefTRIAXone 1 gm/50 mL D5W 1 GM/50 ML BAG IV SCH (15:46)
[2022-12-19] MEDS: Insulin GLARGINE 100 un/ml 10 ml VIAL SUBCUT SCH (20:59)
[2022-12-20 05:00] LABS: Hematocrit 24.9 % (38-53); Hemoglobin 8.5 g/dL (13.2-16.3); Mean Corpuscular Hemoglobin 28.6 pg (27-33); Mean Platelet Volume 7.3 fL (7.5-11.2); Platelet Count 241 10^3/uL (150-450); Red Blood Count 2.97 10^6/uL (4.06-5.63); Red Cell Distribution Width 18.4 % (12-17); White Blood Count 6.9 10^3/uL (3.6-10.2)
[2022-12-20 05:44] LABS: Calcium 7.7 mg/dL (8.6-10.3); Magnesium 1.5 mg/dL (1.9-2.7); Potassium 4.1 mmol/L (3.5-5.0)
[2022-12-20 05:49] LABS: Creatinine, Serum 2.73 mg/dL (0.67-1.17); Phosphorus 2.3 mg/dL (2.5-5.0)
[2022-12-20 06:07] LABS: Anisocytosis 1+
[2022-12-20 06:08] LABS: ABS Basophils 0.1 10^3/uL (0.0-0.1); ABS Eosinophils 0.3 10^3/uL (0.0-0.5); ABS Monocytes 1.1 10^3/uL (0.0-1.1); ABS Neutrophils 4.9 10^3/uL (1.5-7.6); ABS Nucleated RBC 0.01 10^3/ul; Eosinophil % 3.5 %; Lymphocyte % 13.3 %; Nucleated Red Blood Cells % 0.1 /100 WBC (0.0-0.4); Polychromasia 1+
[2022-12-20] MEDS: Fluticasone NASAL SPRAY 50MCG 16 gm SPRAY BTL BOTH NARES SCH ×2 (08:50→20:58)
[2022-12-20] MEDS: Collagenase 250 units/gm OINT 1 tube TOPICAL SCH (09:28)
[2022-12-20] MEDS ORDERED: Metoprolol Tartrate 5 mg VIAL 5 ml VIAL (1 mg/ml) IV PRN (09:58)
[2022-12-20] MEDS: cefTRIAXone 1 gm/50 mL D5W 1 GM/50 ML BAG IV SCH (15:18)
[2022-12-20] MEDS: Chlorhexidine MOUTHWASH 0.12% 15 ML UDC SWISH SPIT SCH ×2 (17:23→20:49)
[2022-12-20] MEDS: Insulin GLARGINE 100 un/ml 10 ml VIAL SUBCUT SCH (20:48)
[2022-12-20] MEDS: HYDROcodone/ACETAMIN 5/325 mg TAB PO PRN (20:48)
[2022-12-20] MEDS ORDERED: guaiFENesin 100 mg/5 ml LIQ unit dose cup PO PRN (21:13)
[2022-12-21 04:00] LABS: ABS Basophils 0.1 10^3/uL (0.0-0.1); ABS Eosinophils 0.2 10^3/uL (0.0-0.5); ABS Lymphocytes 0.8 10^3/uL (1.0-4.8); ABS Neutrophils 6.8 10^3/uL (1.5-7.6); Eosinophil % 1.9 %; Hematocrit 26.2 % (38-53); Hemoglobin 8.9 g/dL (13.2-16.3); Lymphocyte % 9.5 %; Mean Corpuscular Hemoglobin 28.7 pg (27-33); Mean Corpuscular Hgb Conc 33.8 g/dL (31-36); Mean Corpuscular Volume 84.7 fL (80-97); Mean Platelet Volume 7.4 fL (7.5-11.2); Platelet Count 274 10^3/uL (150-450); Red Blood Count 3.09 10^6/uL (4.06-5.63); Red Cell Distribution Width 18.4 % (12-17); White Blood Count 8.9 10^3/uL (3.6-10.2)
[2022-12-21 04:43] LABS: Calcium 8.1 mg/dL (8.6-10.3); Creatinine, Serum 2.46 mg/dL (0.67-1.17); Magnesium 1.6 mg/dL (1.9-2.7); Phosphorus 3.3 mg/dL (2.5-5.0); eGFR CKD-EPI 27.2 (>60)
[2022-12-21] MEDS: Chlorhexidine MOUTHWASH 0.12% 15 ML UDC SWISH SPIT SCH ×3 (10:20→21:47)
[2022-12-21] MEDS: Collagenase 250 units/gm OINT 1 tube TOPICAL SCH (10:20)
[2022-12-21] MEDS: Fluticasone NASAL SPRAY 50MCG 16 gm SPRAY BTL BOTH NARES SCH ×2 (10:20→21:55)
[2022-12-21] MEDS: cefTRIAXone 1 gm/50 mL D5W 1 GM/50 ML BAG IV SCH (15:21)
[2022-12-21] MEDS ORDERED: Magnesium Sulf 4 GM/100 ML IV 4,000 MG/100 ML BAG IVPB ONE (15:39)
[2022-12-21] MEDS: HYDROcodone/ACETAMIN 5/325 mg TAB PO PRN ×2 (15:49→21:48)
[2022-12-21] MEDS: Insulin GLARGINE 100 un/ml 10 ml VIAL SUBCUT SCH (21:52)
[2022-12-22] MEDS: HYDROcodone/ACETAMIN 5/325 mg TAB PO PRN ×3 (03:35→17:04)
[2022-12-22 05:55] LABS: ABS Basophils 0.2 10^3/uL (0.0-0.1); ABS Eosinophils 0.3 10^3/uL (0.0-0.5); ABS Monocytes 0.9 10^3/uL (0.0-1.1); ABS Neutrophils 4.2 10^3/uL (1.5-7.6); ABS Nucleated RBC 0.01 10^3/ul; Eosinophil % 5.1 %; Hematocrit 26.2 % (38-53); Hemoglobin 8.8 g/dL (13.2-16.3); Lymphocyte % 15.1 %; Mean Corpuscular Hemoglobin 28.3 pg (27-33); Mean Corpuscular Hgb Conc 33.5 g/dL (31-36); Mean Corpuscular Volume 84.4 fL (80-97); Mean Platelet Volume 7.6 fL (7.5-11.2); Nucleated Red Blood Cells % 0.1 /100 WBC (0.0-0.4); Platelet Count 285 10^3/uL (150-450); Red Blood Count 3.11 10^6/uL (4.06-5.63); Red Cell Distribution Width 18.2 % (12-17); White Blood Count 6.7 10^3/uL (3.6-10.2)
[2022-12-22 06:18] LABS: Creatinine, Serum 2.06 mg/dL (0.67-1.17); Magnesium 2.3 mg/dL (1.9-2.7); Phosphorus 2.6 mg/dL (2.5-5.0); Potassium 4.3 mmol/L (3.5-5.0); eGFR CKD-EPI 33.6 (>60)
[2022-12-22] MEDS: Fluticasone NASAL SPRAY 50MCG 16 gm SPRAY BTL BOTH NARES SCH ×2 (10:53→20:27)
[2022-12-22] MEDS: Collagenase 250 units/gm OINT 1 tube TOPICAL SCH (11:33)
[2022-12-22] MEDS: Chlorhexidine MOUTHWASH 0.12% 15 ML UDC SWISH SPIT SCH (12:07)
[2022-12-22] MEDS: cefTRIAXone 1 gm/50 mL D5W 1 GM/50 ML BAG IV SCH (16:06)
[2022-12-23] MEDS: HYDROcodone/ACETAMIN 5/325 mg TAB PO PRN (01:30)
[2022-12-23 06:30] LABS: ABS Basophils 0.3 10^3/uL (0.0-0.1); ABS Eosinophils 0.4 10^3/uL (0.0-0.5); ABS Monocytes 0.9 10^3/uL (0.0-1.1); ABS Neutrophils 4.3 10^3/uL (1.5-7.6); ABS Nucleated RBC 0.01 10^3/ul; Eosinophil % 5.4 %; Hematocrit 27.1 % (38-53); Hemoglobin 9.1 g/dL (13.2-16.3); Lymphocyte % 14.9 %; Mean Corpuscular Hemoglobin 28.7 pg (27-33); Mean Corpuscular Hgb Conc 33.6 g/dL (31-36); Mean Corpuscular Volume 85.4 fL (80-97); Mean Platelet Volume 7.8 fL (7.5-11.2); Nucleated Red Blood Cells % 0.1 /100 WBC (0.0-0.4); Platelet Count 296 10^3/uL (150-450); Red Blood Count 3.18 10^6/uL (4.06-5.63); Red Cell Distribution Width 18.2 % (12-17); White Blood Count 6.9 10^3/uL (3.6-10.2)
[2022-12-23 06:46] LABS: Calcium 8.1 mg/dL (8.6-10.3); Creatinine, Serum 1.91 mg/dL (0.67-1.17); Magnesium 1.8 mg/dL (1.9-2.7); Phosphorus 1.9 mg/dL (2.5-5.0); eGFR CKD-EPI 36.8 (>60)
[2022-12-23] MEDS ORDERED: SODIUM PHOSPHATE IV ONE (07:09)
[2022-12-23] MEDS ORDERED: NS 0.9% IV ONE (07:09)
[2022-12-23] MEDS ORDERED: Magnesium Sulfate 2 gm BAG 2 GM/50 ML BAG IVPB ONE (07:09)
[2022-12-23] MEDS: Collagenase 250 units/gm OINT 1 tube TOPICAL SCH (09:55)
[2022-12-23] MEDS: Fluticasone NASAL SPRAY 50MCG 16 gm SPRAY BTL BOTH NARES SCH (09:56)
[2022-12-23 14:31] VITALS: BP 113/53
== END 2022-12-23 17:05 | DRG 871 ==
LOC: ED 12:55 → EDHOLD 12:55 → SUATTDRO 17:10 → EDHOLD 12-17 00:04 → SUATTDRO 12-17 12:00 → EDHOLD 12-17 12:31 → ICU 12-17 16:32 → MEDTELE 12-22 01:11
PROVIDERS: ADMIT Internal Medicine; ATTEND Student in an Organized Health Care Education/Training Program

== ENCOUNTER 2023-08-15 05:25 | Inpatient (IN) ==
[2023-08-15 07:08] LABS: Urine Appearance Cloudy; Urine Bilirubin Negative (Negative); Urine Blood 1+ (Negative); Urine Color Amber; Urine Glucose Negative (Negative); Urine Ketones Negative (Negative); Urine Nitrite Negative (Negative); Urine Protein 3+(>=500 mg/dL) (Negative); Urine Urobilinogen Negative (Negative)
[2023-08-15 07:10] LABS: Urine Bacteria 2+ (Absent); Urine Red Blood Cell 3+(>10/hpf) (Absent); Urine Squamous Epithelial Cell Present (Absent); Urine White Blood Cell 3+(>20/hpf) (Absent)
[2023-08-15 07:10] LABS: Activated Partial Thrombo Time 37.4 seconds (26.0-38.0); INR 1.77 (0.83-1.13)
[2023-08-15 07:22] LABS: Albumin 3.9 g/dL (3.2-5.2); Albumin/Globulin Ratio 0.9 (1-3); C Reactive Protein 162.59 mg/L (<8.01); Calcium 10.3 mg/dL (8.6-10.3); Creatinine, Serum 2.69 mg/dL (0.67-1.17); Globulin 4.4 g/dL (2-4); Potassium 5.9 mmol/L (3.5-5.0); Total Bilirubin 0.8 mg/dL (0.2-1.0); Total Protein 8.3 g/dL (6.4-8.9); eGFR CKD-EPI 24.2 (>60)
[2023-08-15] MEDS ORDERED: Lactated Ringers 1000 ml BAG 1,000 ML IV ONE ×2 (07:52→17:26)
[2023-08-15] MEDS ORDERED: Cefepime 2 GM in Dextrose 2 GM/50 ML BAG IV ONE (07:53)
[2023-08-15 07:57] LABS: ABS Lymphocytes 0.7 10^3/uL (1.0-4.8); ABS Monocytes 1.7 10^3/uL (0.0-1.1); ABS Neutrophils 20.6 10^3/uL (1.5-7.6); ABS Nucleated RBC 0.01 10^3/ul; Hematocrit 44.5 % (38-53); Hemoglobin 14.2 g/dL (13.2-16.3); Mean Corpuscular Hemoglobin 23.6 pg (27-33); Mean Corpuscular Hgb Conc 31.9 g/dL (31-36); Mean Platelet Volume 7.6 fL (7.5-11.2); Platelet Count 366 10^3/uL (150-450); Red Blood Count 6.01 10^6/uL (4.06-5.63); Red Cell Distribution Width 17.5 % (12-17); White Blood Count 23.1 10^3/uL (3.6-10.2)
[2023-08-15 08:12] LABS: High Sensitivity Troponin 1 Hr 21 pg/mL (<20)
[2023-08-15] MEDS ORDERED: Cefepime 2 GM in Dextrose 2 GM/50 ML BAG IV SCH (08:30)
[2023-08-15] MEDS ORDERED: Azithromycin 500 mg/250 ml NS 500 MG/250 ML BAG IVPB ONE (09:00)
[2023-08-15] MEDS ORDERED: Metoprolol Tartrate 5 mg VIAL 5 ml VIAL (1 mg/ml) IV ONE (09:54)
[2023-08-15] MEDS ORDERED: Bumetanide IV 0.25 MG/ML 4 ml VIAL (1 mg) IV SLOW PU ONE (09:54)
[2023-08-15] MEDS ORDERED: Dextrose 50% Syringe 50 ml 25 GM/50 ML SYRINGE IV PUSH PRN (11:40)
[2023-08-15] MEDS ORDERED: SODIUM ZIRCONIUM CYCLOSILICATE 10 GM PACKET PO ONE (11:56)
[2023-08-15 13:21] LABS: Calcium 9.7 mg/dL (8.6-10.3); Creatinine, Serum 2.63 mg/dL (0.67-1.17); eGFR CKD-EPI 24.9 (>60)
[2023-08-15 17:18] LABS: Calcium 9.2 mg/dL (8.6-10.3); Creatinine, Serum 2.44 mg/dL (0.67-1.17); Potassium 4.8 mmol/L (3.5-5.0); eGFR CKD-EPI 27.2 (>60)
[2023-08-15] MEDS: Pentoxifylline CR 400 mg TAB 400 MG PO SCH (18:12)
[2023-08-16 06:11] LABS: ABS Basophils 0.1 10^3/uL (0.0-0.1); ABS Lymphocytes 0.7 10^3/uL (1.0-4.8); ABS Monocytes 1.2 10^3/uL (0.0-1.1); ABS Neutrophils 12.4 10^3/uL (1.5-7.6); Eosinophil % 0.1 %; Hematocrit 32.3 % (38-53); Hemoglobin 10.3 g/dL (13.2-16.3); Lymphocyte % 4.6 %; Mean Corpuscular Hemoglobin 23.3 pg (27-33); Mean Corpuscular Hgb Conc 31.8 g/dL (31-36); Mean Corpuscular Volume 73.4 fL (80-97); Mean Platelet Volume 7.5 fL (7.5-11.2); Platelet Count 286 10^3/uL (150-450); Red Blood Count 4.39 10^6/uL (4.06-5.63); Red Cell Distribution Width 17.5 % (12-17); White Blood Count 14.4 10^3/uL (3.6-10.2)
[2023-08-16 06:21] LABS: Calcium 9.1 mg/dL (8.6-10.3); Creatinine, Serum 2.12 mg/dL (0.67-1.17); Potassium 4.5 mmol/L (3.5-5.0); eGFR CKD-EPI 32.3 (>60)
[2023-08-16] MEDS ORDERED: Cefepime 2 GM in Dextrose 2 GM/50 ML BAG IV SCH (08:30)
[2023-08-16] MEDS: Cefepime 2 GM in Dextrose 2 GM/50 ML BAG IV SCH (08:35)
[2023-08-16] MEDS ORDERED: Gentamicin 0.1% OINTMENT 15 GM TUBE TOPICAL SCH (09:00)
[2023-08-16] MEDS ORDERED: Azithromycin 500 mg/250 ml NS 500 MG/250 ML BAG IVPB SCH ×2 (10:00)
[2023-08-16] MEDS: Pentoxifylline CR 400 mg TAB 400 MG PO SCH ×3 (10:34→17:14)
[2023-08-16] MEDS ORDERED: Lactated Ringers 1000 ml BAG 1,000 ML IV ONE (14:03)
[2023-08-16 19:34] LABS: Hematocrit 34.6 % (38-53); Hemoglobin 10.8 g/dL (13.2-16.3); Mean Corpuscular Hemoglobin 23.1 pg (27-33); Mean Corpuscular Hgb Conc 31.1 g/dL (31-36); Mean Corpuscular Volume 74.3 fL (80-97); Mean Platelet Volume 7.7 fL (7.5-11.2); Platelet Count 294 10^3/uL (150-450); Red Blood Count 4.66 10^6/uL (4.06-5.63); Red Cell Distribution Width 17.9 % (12-17); White Blood Count 11.2 10^3/uL (3.6-10.2)
[2023-08-17 07:22] LABS: Hematocrit 31.8 % (38-53); Hemoglobin 10.2 g/dL (13.2-16.3); Mean Corpuscular Hemoglobin 23.8 pg (27-33); Mean Corpuscular Hgb Conc 32.2 g/dL (31-36); Mean Corpuscular Volume 73.8 fL (80-97); Mean Platelet Volume 7.8 fL (7.5-11.2); Platelet Count 276 10^3/uL (150-450); Red Cell Distribution Width 17.8 % (12-17); White Blood Count 8.3 10^3/uL (3.6-10.2)
[2023-08-17 07:27] LABS: Calcium 8.8 mg/dL (8.6-10.3); Creatinine, Serum 1.81 mg/dL (0.67-1.17); Potassium 3.9 mmol/L (3.5-5.0)
[2023-08-17] MEDS ORDERED: Potassium Chloride LIQUID 20 MEQ/15 ML LIQUID PO ONE (07:37)
[2023-08-17] MEDS: Cefepime 2 GM in Dextrose 2 GM/50 ML BAG IV SCH (09:37)
[2023-08-17] MEDS: Pentoxifylline CR 400 mg TAB 400 MG PO SCH ×4 (09:37→17:13)
[2023-08-17] MEDS ORDERED: cefTRIAXone 2 gm/50 mL D5W 2 GM/50 ML BAG IV SCH (11:00)
[2023-08-17 13:56] VITALS: BP 120/76
== END 2023-08-17 17:30 | DRG 871 ==
LOC: ED 05:25 → EDHOLD 05:25 → SUATTDRO 09:09 → MEDTELE 18:01 → SUATTDRO 08-16 11:35
PROVIDERS: ADMIT Internal Medicine; ATTEND Hospitalist

== ENCOUNTER 2024-08-14 11:22 | Inpatient (IN) ==
[2024-08-14] MEDS: Acetaminophen IV 1 GM/100ML 1,000 MG/100 ML BAG IV ONE (14:19)
[2024-08-14 14:22] LABS: ABS Eosinophils 0.2 10^3/uL (0.0-0.5); ABS Lymphocytes 1.2 10^3/uL (1.0-4.8); ABS Monocytes 0.7 10^3/uL (0.0-1.1); ABS Neutrophils 5.1 10^3/uL (1.5-7.6); ABS Nucleated RBC 0.01 10^3/ul; Eosinophil % 2.8 %; Hematocrit 42.6 % (38-53); Hemoglobin 13.8 g/dL (13.2-16.3); Lymphocyte % 16.9 %; Mean Corpuscular Hemoglobin 27.8 pg (27-33); Mean Corpuscular Hgb Conc 32.5 g/dL (31-36); Mean Corpuscular Volume 85.4 fL (80-97); Mean Platelet Volume 7.4 fL (7.5-11.2); Nucleated Red Blood Cells % 0.1 %/100WBC (0.0-0.8); Platelet Count 182 10^3/uL (150-450); Red Blood Count 4.98 10^6/uL (4.06-5.63); Red Cell Distribution Width 17.3 % (12-17); White Blood Count 7.3 10^3/uL (3.6-10.2)
[2024-08-14 14:53] LABS: Albumin/Globulin Ratio 1.4 (1-3); C Reactive Protein 13.61 mg/L (<8.01); Calcium 9.3 mg/dL (8.6-10.3); Creatinine, Serum 1.74 mg/dL (0.67-1.17); Globulin 2.8 g/dL (2-4); Potassium 4.9 mmol/L (3.5-5.0); Total Bilirubin 0.5 mg/dL (0.2-1.0); Total Protein 6.8 g/dL (6.4-8.9); eGFR CKD-EPI 40.6 (>60)
[2024-08-14] MEDS: Cefepime 2 GM in Dextrose 2 GM/50 ML BAG IV ONE (15:50)
[2024-08-14] MEDS: metroNIDAZOLE IV 500 MG/100ML 500 MG/100 ML BAG IVPB ONE (15:51)
[2024-08-14] MEDS: Vancomycin 1,750 MG in NS 0.9% 500 ml BAG 500 ML IVPB ONE (16:55)
[2024-08-14] MEDS ORDERED: Vancomycin per Pharmacy 1 EA NOTE FOLLOW UP SCH (19:00)
[2024-08-14] MEDS: Pentoxifylline CR 400 mg TAB 400 MG PO SCH (20:44)
[2024-08-15] MEDS: Cefepime 1 GM in Dextrose 1 GM/50 ML BAG IV SCH (16:16)
[2024-08-15] MEDS: fentaNYL 100 mcg/2 ml 50 MCG/ML VIAL ONE (16:27)
[2024-08-15] MEDS: Vancomycin 1,250 MG in NS 0.9% 250 ml 250 ML IVPB SCH (17:45)
[2024-08-16 05:36] LABS: ABS Basophils 0.1 10^3/uL (0.0-0.1); ABS Eosinophils 0.1 10^3/uL (0.0-0.5); ABS Lymphocytes 1.1 10^3/uL (1.0-4.8); ABS Monocytes 0.8 10^3/uL (0.0-1.1); ABS Neutrophils 4.1 10^3/uL (1.5-7.6); Eosinophil % 2.3 %; Hematocrit 37.1 % (38-53); Hemoglobin 12.3 g/dL (13.2-16.3); Lymphocyte % 17.7 %; Mean Corpuscular Hemoglobin 28.1 pg (27-33); Mean Corpuscular Hgb Conc 33.2 g/dL (31-36); Mean Corpuscular Volume 84.8 fL (80-97); Mean Platelet Volume 7.7 fL (7.5-11.2); Nucleated Red Blood Cells % 0.1 %/100WBC (0.0-0.8); Platelet Count 157 10^3/uL (150-450); Red Blood Count 4.38 10^6/uL (4.06-5.63); Red Cell Distribution Width 17.4 % (12-17); White Blood Count 6.2 10^3/uL (3.6-10.2)
[2024-08-16 05:53] LABS: Albumin 3.3 g/dL (3.5-5.7); Albumin/Globulin Ratio 1.3 (1-3); Calcium 8.6 mg/dL (8.6-10.3); Creatinine, Serum 2.02 mg/dL (0.67-1.17); Globulin 2.5 g/dL (2-4); Magnesium 1.8 mg/dL (1.9-2.7); Potassium 4.6 mmol/L (3.5-5.0); Total Bilirubin 0.3 mg/dL (0.2-1.0); Total Protein 5.8 g/dL (6.4-8.9)
[2024-08-16] MEDS: Magnesium Sulfate 2 gm BAG 2 GM/50 ML BAG IVPB ONE (10:11)
[2024-08-16 15:59] LABS: C Reactive Protein 38.02 mg/L (<8.01)
[2024-08-17 09:20] LABS: ABS Basophils 0.1 10^3/uL (0.0-0.1); ABS Eosinophils 0.3 10^3/uL (0.0-0.5); ABS Lymphocytes 1.2 10^3/uL (1.0-4.8); ABS Monocytes 0.6 10^3/uL (0.0-1.1); ABS Neutrophils 4.1 10^3/uL (1.5-7.6); Eosinophil % 4.7 %; Hematocrit 40.1 % (38-53); Hemoglobin 13.4 g/dL (13.2-16.3); Lymphocyte % 19.2 %; Mean Corpuscular Hemoglobin 28.3 pg (27-33); Mean Corpuscular Hgb Conc 33.4 g/dL (31-36); Mean Corpuscular Volume 84.5 fL (80-97); Mean Platelet Volume 7.6 fL (7.5-11.2); Platelet Count 181 10^3/uL (150-450); Red Blood Count 4.75 10^6/uL (4.06-5.63); Red Cell Distribution Width 17.5 % (12-17); White Blood Count 6.3 10^3/uL (3.6-10.2)
[2024-08-17 09:54] LABS: Calcium 8.8 mg/dL (8.6-10.3); Creatinine, Serum 1.81 mg/dL (0.67-1.17); eGFR CKD-EPI 38.8 (>60)
[2024-08-17] MEDS: Vancomycin Trough Check NOTE FOLLOW UP ONE (19:21)
[2024-08-18 11:53] LABS: ABS Basophils 0.1 10^3/uL (0.0-0.1); ABS Eosinophils 0.3 10^3/uL (0.0-0.5); ABS Lymphocytes 1.1 10^3/uL (1.0-4.8); ABS Monocytes 0.9 10^3/uL (0.0-1.1); ABS Neutrophils 5.2 10^3/uL (1.5-7.6); Eosinophil % 3.4 %; Hematocrit 39.3 % (38-53); Hemoglobin 12.9 g/dL (13.2-16.3); Lymphocyte % 14.4 %; Mean Corpuscular Hemoglobin 28.1 pg (27-33); Mean Corpuscular Hgb Conc 32.9 g/dL (31-36); Mean Corpuscular Volume 85.6 fL (80-97); Mean Platelet Volume 7.8 fL (7.5-11.2); Platelet Count 193 10^3/uL (150-450); Red Cell Distribution Width 17.7 % (12-17); White Blood Count 7.5 10^3/uL (3.6-10.2)
[2024-08-18 12:44] LABS: Calcium 8.9 mg/dL (8.6-10.3); Creatinine, Serum 1.91 mg/dL (0.67-1.17); Magnesium 1.6 mg/dL (1.9-2.7); Potassium 4.8 mmol/L (3.5-5.0); eGFR CKD-EPI 36.3 (>60)
[2024-08-19] MEDS: Ondansetron 4 mg VIAL 2 MG/ML 2 ml VIAL IV PRN (04:44)
[2024-08-19 06:47] LABS: ABS Basophils 0.1 10^3/uL (0.0-0.1); ABS Eosinophils 0.1 10^3/uL (0.0-0.5); ABS Lymphocytes 0.5 10^3/uL (1.0-4.8); ABS Neutrophils 9.2 10^3/uL (1.5-7.6); Eosinophil % 1.2 %; Hematocrit 39.4 % (38-53); Hemoglobin 13.3 g/dL (13.2-16.3); Lymphocyte % 4.6 %; Mean Corpuscular Hemoglobin 28.8 pg (27-33); Mean Corpuscular Hgb Conc 33.8 g/dL (31-36); Mean Corpuscular Volume 85.1 fL (80-97); Mean Platelet Volume 7.9 fL (7.5-11.2); Platelet Count 178 10^3/uL (150-450); Red Blood Count 4.63 10^6/uL (4.06-5.63); Red Cell Distribution Width 17.8 % (12-17); White Blood Count 10.9 10^3/uL (3.6-10.2)
[2024-08-19 07:02] LABS: Calcium 8.9 mg/dL (8.6-10.3); Creatinine, Serum 1.74 mg/dL (0.67-1.17); Potassium 5.1 mmol/L (3.5-5.0); eGFR CKD-EPI 40.6 (>60)
[2024-08-19 13:05] LABS: Urine Appearance Clear; Urine Bilirubin Negative (Negative); Urine Blood 2+ (Negative); Urine Color Light-Yellow; Urine Glucose Negative (Negative); Urine Ketones Negative (Negative); Urine Nitrite Negative (Negative); Urine Protein 2+ (>=100 mg/dL) (Negative); Urine Urobilinogen Negative (Negative)
[2024-08-19 13:16] LABS: Urine Bacteria Absent /HPF (Absent); Urine Red Blood Cell 3+(>10/hpf) /HPF (0-Trace); Urine Squamous Epithelial Cell Present /HPF (Absent); Urine White Blood Cell 1+(6-10/hpf) /HPF (0-Trace)
[2024-08-20 06:31] LABS: Hematocrit 36.3 % (38-53); Mean Corpuscular Hemoglobin 28.3 pg (27-33); Mean Corpuscular Volume 85.7 fL (80-97); Mean Platelet Volume 7.9 fL (7.5-11.2); Platelet Count 148 10^3/uL (150-450); Red Blood Count 4.24 10^6/uL (4.06-5.63); Red Cell Distribution Width 17.5 % (12-17); White Blood Count 5.3 10^3/uL (3.6-10.2)
[2024-08-20 07:04] LABS: Calcium 8.3 mg/dL (8.6-10.3); Creatinine, Serum 1.47 mg/dL (0.67-1.17); Magnesium 1.6 mg/dL (1.9-2.7); Potassium 4.3 mmol/L (3.5-5.0); eGFR CKD-EPI 49.7 (>60)
[2024-08-20 08:00] LABS: ABS Lymphocytes 0.9 10^3/uL (1.0-4.8); ABS Monocytes 0.8 10^3/uL (0.0-1.1); ABS Neutrophils 3.5 10^3/uL (1.5-7.6); Eosinophil % 0.4 %; Lymphocyte % 17.1 %; RBC Morphology Normal (Normal)
[2024-08-20] MEDS: Magnesium Sulf 4 GM/100 ML IV 4,000 MG/100 ML BAG IVPB ONE (08:55)
[2024-08-20] MEDS ORDERED: Vancomycin Trough Check NOTE FOLLOW UP ONE (16:30)
[2024-08-21 06:37] LABS: Hematocrit 37.1 % (38-53); Hemoglobin 12.5 g/dL (13.2-16.3); Mean Corpuscular Hemoglobin 28.5 pg (27-33); Mean Corpuscular Hgb Conc 33.6 g/dL (31-36); Mean Corpuscular Volume 84.8 fL (80-97); Mean Platelet Volume 8.3 fL (7.5-11.2); Platelet Count 179 10^3/uL (150-450); Red Blood Count 4.38 10^6/uL (4.06-5.63); Red Cell Distribution Width 17.1 % (12-17); White Blood Count 5.5 10^3/uL (3.6-10.2)
[2024-08-21 07:11] LABS: Calcium 8.7 mg/dL (8.6-10.3); Creatinine, Serum 1.48 mg/dL (0.67-1.17); Magnesium 2.2 mg/dL (1.9-2.7); Potassium 4.3 mmol/L (3.5-5.0); eGFR CKD-EPI 49.3 (>60)
[2024-08-21 08:41] LABS: ABS Basophils 0.1 10^3/uL (0.0-0.1); ABS Eosinophils 0.1 10^3/uL (0.0-0.5); ABS Lymphocytes 1.1 10^3/uL (1.0-4.8); ABS Neutrophils 3.3 10^3/uL (1.5-7.6); Anisocytosis 1+; Eosinophil % 1.1 %; Lymphocyte % 20.1 %; Nucleated Red Blood Cells % 0.1 %/100WBC (0.0-0.8)
[2024-08-21] MEDS: hydrALAZINE 20 mg/ml 1 ML Vial IV IV SLOW PU ONE (19:44)
[2024-08-22 11:00] LABS: ABS Eosinophils 0.1 10^3/uL (0.0-0.5); ABS Lymphocytes 1.3 10^3/uL (1.0-4.8); ABS Monocytes 0.6 10^3/uL (0.0-1.1); ABS Neutrophils 2.7 10^3/uL (1.5-7.6); Eosinophil % 2.4 %; Hematocrit 38.5 % (38-53); Hemoglobin 12.6 g/dL (13.2-16.3); Lymphocyte % 27.6 %; Mean Corpuscular Hgb Conc 32.8 g/dL (31-36); Mean Corpuscular Volume 85.3 fL (80-97); Mean Platelet Volume 7.6 fL (7.5-11.2); Platelet Count 191 10^3/uL (150-450); Red Blood Count 4.51 10^6/uL (4.06-5.63); Red Cell Distribution Width 17.5 % (12-17); White Blood Count 4.7 10^3/uL (3.6-10.2)
[2024-08-22 11:34] LABS: Calcium 8.8 mg/dL (8.6-10.3); Creatinine, Serum 1.55 mg/dL (0.67-1.17); Magnesium 1.9 mg/dL (1.9-2.7); Potassium 4.6 mmol/L (3.5-5.0); eGFR CKD-EPI 46.7 (>60)
[2024-08-23 06:07] LABS: ABS Basophils 0.1 10^3/uL (0.0-0.1); ABS Eosinophils 0.1 10^3/uL (0.0-0.5); ABS Lymphocytes 1.3 10^3/uL (1.0-4.8); ABS Monocytes 0.6 10^3/uL (0.0-1.1); ABS Neutrophils 3.7 10^3/uL (1.5-7.6); Eosinophil % 1.9 %; Hemoglobin 12.1 g/dL (13.2-16.3); Lymphocyte % 22.8 %; Mean Corpuscular Hemoglobin 27.6 pg (27-33); Mean Corpuscular Hgb Conc 32.7 g/dL (31-36); Mean Corpuscular Volume 84.3 fL (80-97); Mean Platelet Volume 7.3 fL (7.5-11.2); Platelet Count 195 10^3/uL (150-450); Red Blood Count 4.39 10^6/uL (4.06-5.63); Red Cell Distribution Width 16.7 % (12-17); White Blood Count 5.8 10^3/uL (3.6-10.2)
[2024-08-23 06:16] LABS: INR 1.39 (0.85-1.14)
[2024-08-23 06:43] LABS: Calcium 8.7 mg/dL (8.6-10.3); Creatinine, Serum 1.53 mg/dL (0.67-1.17); Magnesium 1.9 mg/dL (1.9-2.7); Potassium 4.5 mmol/L (3.5-5.0); eGFR CKD-EPI 47.4 (>60)
[2024-08-23] MEDS: Bismuth Subsalicylate (BTL) 525 MG/30 ML (BULK BTL) PO PRN (11:51)
[2024-08-23] MEDS: fentaNYL 250 mcg/5 ml 50 MCG/ML 5 ml VIAL (250 MCG) ONE (12:27)
[2024-08-24 08:32] VITALS: BP 157/85
== END 2024-08-24 11:30 | DRG 299 ==
LOC: ED 11:22 → EDHOLD 11:22 → MED 19:40 → SUATTDRO 08-15 12:00
PROVIDERS: ADMIT Student in an Organized Health Care Education/Training Program; ATTEND Internal Medicine